=== PATIENT | male | born 1940 | race Caucasian/White ===

== ENCOUNTER 2020-08-13 10:31 | Inpatient (IN) | payer MEDICARE, SELFPAY ==
[2020-08-13] VITALS (15 sets, daily range): BP systolic 119–162; BP diastolic 61–105; PULSE 55–86; RESP 1–20; TEMP 35.9–36.4; O2SAT 92–99; BMI 27.8
--- NOTE | 2020-08-13 11:05 | XR_ITS ---
WS: [id number] Exam: XR chest 1V portable [id number] Date/Time of Exam: 08/13/2020 11:05 AM Reason For Exam: covid, CP, SOB No priors. There are groundglass infiltrates in the mid mid and lower lung zones bilaterally. Cardiomediastinal structures are unremarkable for portable technique. No pneumothorax. No pleural effusions. Regional b karime elements are intact. XR/XR chest 1V portable [id number] IMPRESSION: 1. Groundglass infiltrates in the mid and lower bilateral lung zones suggesting pneumonia.
[2020-08-13] MEDS: sodium chloride 0.9% 1,000 ML 75 ML IV (11:51)
[2020-08-13 11:52] LABS: Basophils % 0.2 %; Eosinophils # 0.4 10^3/uL (0.0-0.8); Eosinophils % 3.8 %; Hematocrit 39.1 % (42.0-52.0); Hemoglobin 12.9 g/dL (11.7-16.6); Lymphocytes % 9.8 %; Mean Corpuscular Hemoglobin 29.3 pg (28.0-34.0); Mean Corpuscular Volume 88.7 fL (80-94); Mean Platelet Volume 10.4 fL (7.4-10.4); Monocytes # 0.5 10^3/uL (0.2-0.9); Neutrophils # 7.84 10^3/uL (1.8-7.7); Neutrophils % 76.5 %; Nucleated Red Blood Cells % 0 %; Platelet Count 283 10^3/cmm (130-400); Red Blood Count 4.41 10^6/uL (4.1-5.3); White Blood Count 10.2 10^3/uL (4.0-10.0)
[2020-08-13] MEDS: dexamethasone 4 mg/mL INJ 6 MG IVP (11:53)
[2020-08-13 12:19] LABS: INR 1.09 (0.8-1.2)
[2020-08-13 12:20] LABS: Fibrinogen 286 mg/dL (174-498)
--- NOTE | 2020-08-13 12:21 | W.ED.COVID ---
HPI - COVID General: Chief Complaint: COVID symptoms Stated Complaint: SOB Time Seen by Provider: 08/13/20 10:46 Triage information: No fever, cough or shortness of breath. No known COVID + exposure last 14 days History of Present Illness: HPI Narrative: This patient is a 80-year-old male who presents with Covid. He was diagnosed on July 29 at [place] [facility]. At that time he was having fever, cough, body aches, malaise. He said that lasted for about 5 days and as that resolved he started having nausea and vomiting. That lasted for a few days. He been feeling a little bit better overall but then became short of breath several days ago. He is to the point where he can even get up and walk across his room without getting severely short of breath. He is also having some tightness in his chest which reminds him of when he had his heart troubles. He has had a few stents placed in the past. complaint: known COVID positive Prior covid testing: yes, results known Prior testing date: 07/29/20 COVID 19 common symptoms: positive fever(s), chills, cough, dyspnea, fatigue, body aches, headache(s), throat pain, nasal congestion, nausea, vomiting and diarrhea COVID 19 other sytmptoms: positive chest pressure, chest pain and respiratory distress Onset (ago): other (See HPI) Severity: severe Pertinent comorbid conditions: heart disease and recent ED visit for same complaint COVID Results: No Data to Display Review of Systems General: Reports: 10 or more systems reviewed and unremarkable except in HPI and below Const: Reports: fever(s), chills, body aches and fatigue Eyes: Denies: change in vision ENMT: Reports: throat pain and nasal congestion Card: Reports: chest pain; Denies: swelling of feet/ankles Resp: Reports: dyspnea GI: Reports: nausea, vomiting and diarrhea : Denies: flank pain Musc: Denies: neck pain or back pain Skin/Breast: Denies: rash Neuro: Reports: headache(s) Noah/Lymph: Denies: easy bruising or easy bleeding [facility] PFSH: Medical History (Updated 08/13/20 @ 14:53 by Jordon Anders MD) CAD (coronary artery disease) Hyperlipidemia Hypertension Non-insulin dependent type 2 diabetes mellitus Surgical History (Updated 08/13/20 @ 14:48 by Jordon Anders MD) History of heart artery stent Family History (Updated 08/13/20 @ 14:49 by Jordon Anders MD) Mother Old age Father CAD (coronary artery disease) Social History (Updated 08/13/20 @ 14:49 by Jordon Anders MD) Smoking and tobacco status: former smoker Alcohol intake: never Substance/Drug Use: never Physical Exam Const: COMMON NORMALS: patient oriented x3 and alert EXAM LIMITATIONS: other limitations (Very hard of hearing) GENERAL APPEARANCE: cooperative and in distress (With activity or talking) ORIENTATION/CONSCIOUSNESS: Yes awake HENMT: HEAD & SCALP: normal to inspection FACE & SINUS: normal facial exam Eye: GENERAL EYE: appearance normal, both eyes and all related structures Neck/C-Spine: COMMON NORMALS: supple, no meningeal signs and no JVD Chest: COMMONS NORMALS: normal inspection of the chest Resp: EFFORT & INSPECTION: Yes tachypneic, Yes respiratory distress and Yes uses accessory muscles AUSCULTATION: diminished lung sounds Cardio: COMMON NORMALS: no JVD, regular rate, regular rhythm and No murmurs present (Cardio) RATE: regular rate RHYTHM: regular rhythm GI: COMMON NORMALS: Normal to inspection, nondistended, normoactive bowel sounds present, Soft to palpation and non-tender INSPECTION: Yes normal to inspection AUSCULTATION: Yes normoactive bowel sounds PALPATION: Yes Soft to palpation Back/Pelvis: COMMON NORMALS: thoracic and lumbar spine normal to inspection Extremity: COMMON NORMALS: normal to inspection Neuro: COMMON NORMALS: patient oriented x3, moves all extremities, no focal motor deficits and no sensory deficits noted SENSORIUM/ORIENTATION: Yes alert MENINGEAL SIGNS: Yes no meningeal signs Psych: COMMON NORMALS: mental status grossly normal, cooperative and normal affect Skin: COMMON NORMALS: no rashes or lesions noted and turgor normal GENERAL SKIN EXAM: no rashes or lesions noted and turgor normal Course ED course: Mr. Barker presents on day 15 after a positive Covid test. He feels like he should be getting better but instead he is getting worse. His oxygen saturation on room air was in the low 80s. On 4 L I had them in the mid 90s. His x-ray shows significant Covid pneumonia infiltrates. CT of his chest shows large PEs. He is hemodynamically stable. I started him on a heparin drip. He is also had antibiotics as with the prolonged duration of his illness I am worried about a secondary bacterial pneumonia. I gave him remdesivir and Decadron. He will be admitted to the VICU. Vital Signs: Vital signs: Vital Signs Temperature 96.7 F L 08/13/20 10:56 Pulse Rate 66 08/13/20 13:16 Respiratory Rate 20 H 08/13/20 13:16 Blood Pressure 139/105 08/13/20 13:16 Pulse Oximetry 99 08/13/20 13:16 MDM - COVID Lab Data: Labs: Lab Results 08/13/20 08/13/20 08/13/20 Range/Units 11:40 11:40 11:40 WBC 10.2 H (4.0-10.0) 10^3/ uL RBC 4.41 (4.1-5.3) 10^6/u L Hgb 12.9 (11.7-16.6) g/dL Hct 39.1 L (42.0-52.0) % MCV 88.7 (80-94) fL MCH 29.3 (28.0-34.0) pg MCHC 33.0 (30.0-36.0) g/dL RDW 14.0 (12.1-15.1) % Plt Count 283 (130-400) 10^3/c mm MPV 10.4 (7.4-10.4) fL Neut % (Auto) 76.5 % Lymph % (Auto) 9.8 % Glynn % (Auto) 5.0 % Eos % (Auto) 3.8 % Baso % (Auto) 0.2 % Neut # (Auto) 7.84 H (1.8-7.7) 10^3/u L Lymph # (Auto) 1.0 (0.8-4.8) 10^3/u L Glynn # (Auto) 0.5 (0.2-0.9) 10^3/u L Eos # (Auto) 0.4 (0.0-0.8) 10^3/u L Baso # (Auto) 0.0 (0.0-0.1) 10^3/u L Nucleated RBC % (a uto) 0 % Nucleated RBCs # 0.0 /100WBC PT 14.40 (12.1-14.9) SECO NDS INR 1.09 (0.8-1.2) Fibrinogen 286 (174-498) mg/dL D-Dimer >= 20.00 H (0-0.59) ug/mIFE U Specimen Type Sample Site ABG pH (7.35-7.45) ABG pCO2 (35-45) mmHg ABG pO2 (80.0-100.0) mmH g ABG HCO3 (22-26) mmol/L ABG Base Excess (-2.0-2.0) mmol/ L Fareed Test Hematocrit (42-52) % O2 Delivery Device O2 Liters/Min % FiO2 % Food Services Coordinator ID Sodium 134 L (136-145) mmol/L Potassium 4.4 (3.5-5.1) mmol/L Chloride 99 (98-107) mmol/L Carbon Dioxide 24 (22-29) mmol/L Anion Gap 15.4 (5-19) BUN 23 (8-23) mg/dL Creatinine 0.9 (0.7-1.2) mg/dL GFR Calculation Not Reportable Glucose 226 H (65-115) mg/dL Calculated Osmolal ity 289 (285-295) mOsm/k g Lactic Acid (0.5-2.2) mmol/L Calcium 10.1 (8.5-10.5) mg/dL Ferritin 799 H (30-400) ng/mL Total Bilirubin 0.4 (0.15-1.2) mg/dL AST 30 (0-40) U/L ALT 30 (0-41) U/L Alkaline Phosphata se 53 (40-130) IU/L Lactate Dehydrogen ase 379 H (135-225) U/L Troponin T Baselin e (0-15) ng/L C-Reactive Protein 43.7 H (0.0-4.9) mg/L NT-Pro-B Natriuret Pep 779 H (0-450) pg/mL Total Protein 7.2 (6.6-8.7) g/dL Albumin 3.5 (3.5-5.2) g/dL Globulin 3.7 (1.3-4.6) g/dL Procalcitonin 0.10 (0-0.5) ng/mL Influenza Type A A g (Negative) Influenza Type B A g (Negative) 08/13/20 08/13/20 08/13/20 Range/Units 11:40 12:50 12:55 WBC (4.0-10.0) 10^3/ uL RBC (4.1-5.3) 10^6/u L Hgb (11.7-16.6) g/dL Hct (42.0-52.0) % MCV (80-94) fL MCH (28.0-34.0) pg MCHC (30.0-36.0) g/dL RDW (12.1-15.1) % Plt Count (130-400) 10^3/c mm MPV (7.4-10.4) fL Neut % (Auto) % Lymph % (Auto) % Glynn % (Auto) % Eos % (Auto) % Baso % (Auto) % Neut # (Auto) (1.8-7.7) 10^3/u L Lymph # (Auto) (0.8-4.8) 10^3/u L Glynn # (Auto) (0.2-0.9) 10^3/u L Eos # (Auto) (0.0-0.8) 10^3/u L Baso # (Auto) (0.0-0.1) 10^3/u L Nucleated RBC % (a uto) % Nucleated RBCs # /100WBC PT (12.1-14.9) SECO NDS INR (0.8-1.2) Fibrinogen (174-498) mg/dL D-Dimer (0-0.59) ug/mIFE U Specimen Type Sample Site ABG pH (7.35-7.45) ABG pCO2 (35-45) mmHg ABG pO2 (80.0-100.0) mmH g ABG HCO3 (22-26) mmol/L ABG Base Excess (-2.0-2.0) mmol/ L Fareed Test Hematocrit (42-52) % O2 Delivery Device O2 Liters/Min % FiO2 % Food Services Coordinator ID Sodium (136-145) mmol/L Potassium (3.5-5.1) mmol/L Chloride (98-107) mmol/L Carbon Dioxide (22-29) mmol/L Anion Gap (5-19) BUN (8-23) mg/dL Creatinine (0.7-1.2) mg/dL GFR Calculation Glucose (65-115) mg/dL Calculated Osmolal ity (285-295) mOsm/k g Lactic Acid 1.5 (0.5-2.2) mmol/L Calcium (8.5-10.5) mg/dL Ferritin (30-400) ng/mL Total Bilirubin (0.15-1.2) mg/dL AST (0-40) U/L ALT (0-41) U/L Alkaline Phosphata se (40-130) IU/L Lactate Dehydrogen ase (135-225) U/L Troponin T Baselin e 39 H (0-15) ng/L C-Reactive Protein (0.0-4.9) mg/L NT-Pro-B Natriuret Pep (0-450) pg/mL Total Protein (6.6-8.7) g/dL Albumin (3.5-5.2) g/dL Globulin (1.3-4.6) g/dL Procalcitonin (0-0.5) ng/mL Influenza Type A A g Negative (Negative) Influenza Type B A g Negative (Negative) 08/13/20 Range/Units 13:48 WBC (4.0-10.0) 10^3/ uL RBC (4.1-5.3) 10^6/u L Hgb (11.7-16.6) g/dL Hct (42.0-52.0) % MCV (80-94) fL MCH (28.0-34.0) pg MCHC (30.0-36.0) g/dL RDW (12.1-15.1) % Plt Count (130-400) 10^3/c mm MPV (7.4-10.4) fL Neut % (Auto) % Lymph % (Auto) % Glynn % (Auto) % Eos % (Auto) % Baso % (Auto) % Neut # (Auto) (1.8-7.7) 10^3/u L Lymph # (Auto) (0.8-4.8) 10^3/u L Glynn # (Auto) (0.2-0.9) 10^3/u L Eos # (Auto) (0.0-0.8) 10^3/u L Baso # (Auto) (0.0-0.1) 10^3/u L Nucleated RBC % (a uto) % Nucleated RBCs # /100WBC PT (12.1-14.9) SECO NDS INR (0.8-1.2) Fibrinogen (174-498) mg/dL D-Dimer (0-0.59) ug/mIFE U Specimen Type Arterial Sample Site Radial, left ABG pH 7.49 H (7.35-7.45) ABG pCO2 29.6 L (35-45) mmHg ABG pO2 72.6 L (80.0-100.0) mmH g ABG HCO3 22.5 (22-26) mmol/L ABG Base Excess -0.1 (-2.0-2.0) mmol/ L Fareed Test Pos Hematocrit 37.1 L (42-52) % O2 Delivery Device Nc O2 Liters/Min 2.0 % FiO2 28.0 % Food Services Coordinator ID Cak Sodium (136-145) mmol/L Potassium (3.5-5.1) mmol/L Chloride (98-107) mmol/L Carbon Dioxide (22-29) mmol/L Anion Gap (5-19) BUN (8-23) mg/dL Creatinine (0.7-1.2) mg/dL GFR Calculation Glucose (65-115) mg/dL Calculated Osmolal ity (285-295) mOsm/k g Lactic Acid (0.5-2.2) mmol/L Calcium (8.5-10.5) mg/dL Ferritin (30-400) ng/mL Total Bilirubin (0.15-1.2) mg/dL AST (0-40) U/L ALT (0-41) U/L Alkaline Phosphata se (40-130) IU/L Lactate Dehydrogen ase (135-225) U/L Troponin T Baselin e (0-15) ng/L C-Reactive Protein (0.0-4.9) mg/L NT-Pro-B Natriuret Pep (0-450) pg/mL Total Protein (6.6-8.7) g/dL Albumin (3.5-5.2) g/dL Globulin (1.3-4.6) g/dL Procalcitonin (0-0.5) ng/mL Influenza Type A A g (Negative) Influenza Type B A g (Negative) COVID Results: No Data to Display Discharge Plan Discharge Admit Provider: Jordon Anders Coding Level of Care Code ED Mitten Stitcher for g Fwd Exam Comprehensive
[2020-08-13 12:25] LABS: NT Pro B Type Natriuretic Pept 779 pg/mL (0-450)
[2020-08-13 12:36] LABS: D Dimer >= 20.00 ug/mIFEU (0-0.59)
[2020-08-13 12:37] LABS: Alanine Aminotransferase 30 U/L (0-41); Albumin Level 3.5 g/dL (3.5-5.2); Alkaline Phosphatase 53 IU/L (40-130); Anion Gap 15.4 (5-19); Aspartate Amino Transferase 30 U/L (0-40); Blood Urea Nitrogen 23 mg/dL (8-23); C Reactive Protein 43.7 mg/L (0.0-4.9); Calcium 10.1 mg/dL (8.5-10.5); Carbon Dioxide 24 mmol/L (22-29); Chloride 99 mmol/L (98-107); Ferritin 799 ng/mL (30-400); Globulin 3.7 g/dL (1.3-4.6); Glucose 226 mg/dL (65-115); Lactate Dehydrogenase 379 U/L (135-225); Osmolality Calculated 289 mOsm/kg (285-295); Potassium 4.4 mmol/L (3.5-5.1); Sodium 134 mmol/L (136-145); Total Bilirubin 0.4 mg/dL (0.15-1.2); Total Protein 7.2 g/dL (6.6-8.7)
--- NOTE | 2020-08-13 12:48 | ECG_ITS ---
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 Measurements Intervals [place] Rate: 65 P: 25 RI: 197 QRS: -13 QRSD: 88 T: 37 QT: 340 QTc: 355 Interpretive Statements SINUS RHYTHM LOW QRS VOLTAGE IN PRECORDIAL LEADS [QRS DEFLECTION < 1.0 mV IN CHEST LEADS] MINIMAL VOLTAGE CRITERIA FOR LVH, CONSIDER NORMAL VARIANT [MEETS CRITERIA IN ONE OF: R(aVL), S(V1), R(V5), R(V5/V6)+S(V1)] No previous ECG available for comparison Electronically Signed On 08-13-2020 20:02:06 RETAIL EXPERIENCE SPECIALIST by Brenda Patterson M.D. [id number]
--- NOTE | 2020-08-13 12:48 | CT_ITS ---
WS: [id number] CT CHEST ANGIOGRAPHY WITH REFORMATS HISTORY: CP, SOB, COVID TECHNIQUE: Contiguous axial images are obtained through the chest during arterial injection of intrav enous contrast. Images are reconstructed to evaluate the pulmonary arteries. MIP imaging also reviewe d. All CT scans at [facility] use at least one of these dose optimization techniques: aut omated exposure control; mA and/or kV adjustment per patient size (includes targeted exams where dose is matched to clinical indication); or iterative reconstruction. CONTRAST: Omnipaque 350; 95 mL IV. DLP: 577.37 mGy.cm COMPARISON: None available. Adequate opacification of the pulmonary arteries. There is significant bilateral pulmonary artery emb olic burden. Largest clot begins in the proximal RIGHT main pulmonary artery extends predominantly in to the RIGHT lower lobe pulmonary arterial system. There is branching of the thrombus into the segmen cynthia and subsegmental branches of the RIGHT lower lobe. Additional smaller emboli in the RIGHT upper a nd RIGHT middle lobes. Segmental emboli in the LEFT upper and subsegmental emboli in the LEFT lower l obes. Pulmonary artery is enlarged. Mild atherosclerosis aorta. Mild enlargement of LEFT heart chambe rs without significant RIGHT heart strain. There is extensive bilateral pulmonary opacifications. Groundglass attenuation with areas of increasi ng consolidation and opacification. Some of the opacifications are probably related to the emboli and infarcts, especially in the RIGHT lower lobe. Additional groundglass opacifications are probably rel ated to Covid 19 diagnosis. No pleural effusion. Additional rounded atelectasis in the RIGHT lower lo be. No significant adenopathy. Substernal thyroid. Calcifications in the RIGHT lobe the liver were present on the prior study from 2012. No adrenal mass identified. Disc space narrowing and osteophytes throughout the thoracic spine. No osteoblastic or osteolytic bon e disease. CT/CT angio chest PE protcl [id number] IMPRESSION: 1. Moderate bilateral pulmonary embolic burden. 2. Diffuse bilateral groundglass and patchy areas of consolidation. Probably d ue to combination of pulmonary infarct infarcts related to pulmonary embolism, atelectasis and Covid 19. 3. Moderate enlargement of the LEFT heart chambers. 4. Moderate atherosclerosis aorta. Notified Tania Fuchs MD at 08/13/2020 1:48 PM.
[2020-08-13] MEDS: iohexol 350 mg/mL 100 mL Btl IV (13:36)
[2020-08-13 13:47] LABS: Troponin(5th) Baseline 39 ng/L (0-15)
[2020-08-13 13:54] LABS: Lactic Sepsis W/Reflex 1.5 mmol/L (0.5-2.2)
[2020-08-13 13:56] LABS: Influenza A by IFA Negative (Negative); Influenza B by IFA Negative (Negative)
[2020-08-13 13:59] LABS: ABG PCO2 29.6 mmHg (35-45); ABG PH Result 7.49 (7.35-7.45); Arterial Blood Gas Hematocrit 37.1 % (42-52); Base Excess ABG -0.1 mmol/L (-2.0-2.0); Blood Gas Allen Test Pos; Blood Gas Operator Identificat CAK; Blood Gas Sample Site Radial, left; Blood Gas Sample Type Arterial; HCO3 ABG 22.5 mmol/L (22-26); Oxygen Device NC; PO2 ABG 72.6 mmHg (80.0-100.0)
[2020-08-13] MEDS: piperacillin-tazobactam 3.375 GM in sodium chloride 0.9% (plus) 50 ML IV ×2 (14:22→22:14)
[2020-08-13] MEDS: azithromycin 500 MG in sodium chloride 0.9% 250 ML 250 MG IV (14:29)
--- NOTE | 2020-08-13 14:42 | P.HP_ITS ---
Providers/Chief Complaint Admitting Physician: Jordon Anders MD Primary Care Provider: Eddie Paz Chief Complaint: SOB History of Present Illness Vinod Barker is a 80 year old male with a past medical history of CAD status post stenting x3, pkv-[id number]-xoirnyfrg type 2 diabetes mellitus, hypertension, hyperlipidemia, who presents to [facility] due to complaints of chest pain, shortness of breath, fevers, of fatigue, malaise. Patient tells me that he tested positive for Covid a few weeks ago, he has fevers, fatigue, malaise, chills. However starting a few days ago, he is developed shortness of breath, shortness of breath at rest, with chest pain, substernal, nonradiating, does have a CAD history, status post stenting x3, no history of strokes, does have type 2 diabetes, no history of COPD, did smoke for 10 years in his 20s, no falls, no injuries, no recent travel, no calf pain or calf swelling. He also reports presyncopal episodes a few days ago, especially when changing positions, lightheadedness, dizziness, denies ever passing out. Review of Systems Const: Reports: fever(s), body aches, fatigue and malaise; Denies: chills Eyes: Denies: change in vision or blurry vision ENMT: Denies: nasal congestion Card: Reports: chest pain and pre-syncope; Denies: palpitations or irregular heart rhythm Resp: Reports: dyspnea and non-productive cough; Denies: productive cough or wheezing GI: Denies: abdominal pain, nausea, vomiting, hematemesis, diarrhea, constipation, hematochezia or melena : Denies: flank pain, difficulty urinating, dysuria or urinary frequency Musc: Denies: neck pain or back pain Skin/Breast: Denies: rash Neuro: Denies: headache(s), dizziness or vertigo Psych: Denies: anxiety or depression Endo: Denies: polyuria or polydipsia Medications/Allergies Home Medications Medication Instructions Recorded Confirmed Last Taken Type benzonatate 200 mg PO TID PRN 08/13/20 08/13/20 Unknown History lisinopril 2.5 mg PO DAILY 08/13/20 08/13/20 Unknown History metformin 500 mg PO BID 08/13/20 08/13/20 Unknown History simvastatin 20 mg PO DAILY 08/13/20 08/13/20 Unknown History Allergies Allergy/AdvReac Type Severity Reaction Status Date / Time No Known Allergies Allergy Verified 08/13/20 10:59 PFSH Acute PFSH: Medical History (Updated 08/13/20 @ 14:53 by Jordon Anders MD) CAD (coronary artery disease) Hyperlipidemia Hypertension Non-insulin dependent type 2 diabetes mellitus Surgical History (Updated 08/13/20 @ 14:48 by Jordon Anders MD) History of heart artery stent Family History (Updated 08/13/20 @ 14:49 by Jordon Anders MD) Mother Old age Father CAD (coronary artery disease) Social History (Updated 08/13/20 @ 14:49 by Jordon Anders MD) Smoking and tobacco status: former smoker Alcohol intake: never Substance/Drug Use: never Vitals/I&O/Wt Last Vital Signs Temp 96.7 F L 08/13/20 10:56 Pulse 66 08/13/20 13:16 Resp 20 H 08/13/20 13:16 BP 139/105 08/13/20 13:16 Pulse Ox 99 08/13/20 13:16 Weight last 48 hrs Weight 90.718 kg Physical Exam Const: COMMON NORMALS: no acute distress and patient oriented x3 GENERAL APPEARANCE: cooperative and comfortable HENMT: COMMON NORMALS: normocephalic HEAD & SCALP: normocephalic Eye: COMMON NORMALS: Equal, round and reactive pupils present and EOMs intact bilaterally GENERAL EYE: appearance normal, both eyes and all related structures PUPIL: Yes Equal, round and reactive pupils present Neck/C-Spine: COMMON NORMALS: full ROM, no lymphadenopathy, no JVD and Thyroid normal THYROID: Thyroid normal Lymph: LYMPHATIC: no lymphadenopathy noted Resp: COMMON NORMALS: normal respiratory effort, No retractions, No use of accessory muscles and clear to auscultation bilaterally AUSCULTATION: diminished lung sounds Cardio: COMMON NORMALS: no JVD, regular rate, regular rhythm, S1 normal heart sound present, S2 normal heart sound present, No gallops present (Cardio), No clicks present (Cardio) and No murmurs present (Cardio) RATE: regular rate RHYTHM: regular rhythm HEART SOUNDS: S1 normal heart sound present and S2 normal heart sound present GI: COMMON NORMALS: Normal to inspection, nondistended, normoactive bowel sounds present, Soft to palpation, non-tender and No hepatosplenomegaly present PALPATION: Yes Soft to palpation and Yes No hepatosplenomegaly present Extremity: COMMON NORMALS: normal to inspection, full ROM and no pedal edema Neuro: COMMON NORMALS: patient oriented x3, CN's II-XII intact bilaterally, moves all extremities and no focal motor deficits Psych: COMMON NORMALS: mental status grossly normal, Normal thought process p resent and cooperative THOUGHT PROCESS: Normal thought process present Data : 08/13/20 11:40 08/13/20 11:40 A&P Assessment and plan (1) Acute and chronic respiratory failure with hypoxia: Secondary to COVID-19 pneumonia, viral pneumonitis, secondary bacterial infection, bilateral PEs, pulmonary infarct, and early component of acute respiratory distress syndrome -ct angio:significant bilateral pulmonary artery embolic burden. Largest clot begins in the proximal RIGHT main pulmonary artery extends predominantly into the RIGHT lower lobe pulmonary arterial system. There is branching of the thrombus into the segmental and subsegmental branches of the RIGHT lower lobe. Additional smaller emboli in the RIGHT upper and RIGHT middle lobes. Segmental emboli in the LEFT upper and subsegmental emboli in the LEFT lower lobes. Pulmonary artery is enlarged. Mild atherosclerosis aorta. Mild enlargement of LEFT heart chambers without significant RIGHT heart strain. There is extensive bilateral pulmonary opacifications. Groundglass attenuation with areas of increasing consolidation and opacification. Some of the opacifications are probably related to the emboli and infarcts, especially in the RIGHT lower lobe. Additional groundglass opacifications are probably related to Covid 19 diagnosis -on 2L, no respiratory distress, no hemodynamic compromise, normal sinus rhythm Plan: -Admit to viral ICU -Full code -Heparin drip -Decadron -Remdesivir -Broad-spectrum antibiotics vancomycin, Zosyn, azithromycin -Blood cultures, urine cultures, sputum cultures, urine bacterial antigens -Cardiac echocardiogram -serial troponins, serial EKGs, telemetry monitoring -Vitamin C zinc -Advair, albuterol -Oxygen therapy -Patient is high risk for intubation Status: Acute (2) CAD (coronary artery disease): Status post stenting x3 Status: Acute (3) Hyperlipidemia: Continue statin Status: Acute (4) Hypertension: Status: Acute (5) Non-insulin dependent type 2 diabetes mellitus: Low-dose sliding scale, A1c Status: Acute (6) Pneumonia due to COVID-19 virus: Status: Acute (7) Secondary bacterial pneumonia: Status: Acute (8) Bilateral pulmonary embolism: Status: Acute (9) Pulmonary infarct: Status: Acute (10) Acute respiratory distress syndrome: Status: Acute (11) NSTEMI (non-ST elevated myocardial infarction): Likely supply demand ischemia from bilateral PEs, COVID-19, pneumonia, acute respiratory failure -Aspirin, statin, monitor blood pressures, monitor troponins, monitor EKGs Status: Acute Attestations Medical Necessity Statement*: Patient requires hospitalization, inpatient, greater than 2 midnights, for acute respiratory failure secondary to PEs, COVID- 19, secondary bacterial pneumonia, pulmonary infarct Coding Level of Care Code Acute Bilingual Sales Representative for [facility] Fwd Diagnoses Acute and chronic respiratory failure with hypoxia J96.21 CAD (coronary artery disease) I25.10 Hyperlipidemia E78.5 Hypertension I10 Non-insulin dependent type 2 diabetes mellitus E11.9 Pneumonia due to COVID-19 virus U07.1; J12.89 Secondary bacterial pneumonia J15.9 Bilateral pulmonary embolism I26.99 Pulmonary infarct I26.99 Acute respiratory distress syndrome J80 NSTEMI (non-ST elevated myocardial infarction) I21.4
--- NOTE | 2020-08-13 14:48 | ECG_ITS ---
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 Measurements Intervals [place] Rate: 71 P: 19 GA: 185 QRS: -12 QRSD: 94 T: 35 QT: 352 QTc: 382 Interpretive Statements SINUS RHYTHM LOW QRS VOLTAGE IN PRECORDIAL LEADS [QRS DEFLECTION < 1.0 mV IN CHEST LEADS] POSSIBLE OLD INFERIOR RI Compared to ECG 08/13/2020 13:25:21 No significant changes Electronically Signed On 08-13-2020 20:13:45 SAMPLE EXAMINER by Brenda Patterson M.D. [id number]
[2020-08-13 15:15] LABS: Troponin 5 2HR 36.23 ng/L (0-15); Troponin 5 2HR Delta -2.77 ABS# (0-10)
[2020-08-13] MEDS: heparin 5,000 unit/mL INJ 1 mL IV (15:55)
[2020-08-13] MEDS: heparin drip 25,000 UNIT/500 ML PREMIX 25.4 UNIT IV (15:55)
[2020-08-13] MEDS: vancomycin 1,250 MG/250 ML PIGGYBACK 200 MG IV (15:59)
[2020-08-13] MEDS: ascorbic acid 500 mg Tablet 1000 MG PO (18:18)
[2020-08-13] MEDS: aspirin 81 mg EC Tablet PO (18:18)
[2020-08-13 18:30] LABS: Glucose Point of Care 387 mg/dL (70-110)
--- NOTE | 2020-08-13 20:23 | PC.NURSE ---
blood drawn and sent for Lactic Acid/Trop/COVID and UA collected and sent. Family called and verified with pt okay to talk with family.
[2020-08-13 20:57] LABS: Lactate (Lactic Acid level) 2.6 mmol/L (0.5-2.2)
[2020-08-13 20:58] LABS: Troponin 5 6HR 35.68 ng/L (0-15)
--- NOTE | 2020-08-13 21:59 | PC.NURSE ---
no wounds noted
[2020-08-13 22:08] LABS: Glucose Point of Care 238 mg/dL (70-110)
[2020-08-13 23:20] LABS: Partial Thromboplastin Time 125.6 SECONDS (23.9-36.7)
[2020-08-14] VITALS (29 sets, daily range): BP systolic 103–175; BP diastolic 55–85; PULSE 51–78; RESP 6–28; TEMP 36.2–37.1; O2SAT 88–100
--- NOTE | 2020-08-14 00:15 | PC.NURSE ---
RR not 4 and zero 14-18 BPM
[2020-08-14] MEDS: acetaminophen 325 mg Tablet 650 MG PO (01:17)
--- NOTE | 2020-08-14 01:18 | PC.NURSE ---
call to physician, NS order d/c pt has heparin infusing check on the NS at 30cc/hr TKO. Pt requested sleep medication. Notified provider of pt's request, gave Tylenol PO now
[2020-08-14] MEDS: sodium chloride 0.9% 1,000 ML 10 ML IV (01:41)
[2020-08-14] MEDS: zolpidem 5 mg Tablet PO (03:03)
[2020-08-14] MEDS: vancomycin 1,250 MG/250 ML PIGGYBACK 200 MG IV (03:21)
[2020-08-14 04:06] LABS: ABG PCO2 33.6 mmHg (35-45); ABG PH Result 7.44 (7.35-7.45); Arterial Blood Gas Hematocrit 34.8 % (42-52); Blood Gas Allen Test Pos; Blood Gas Operator Identificat HARKR; Blood Gas Sample Site Radial, right; Blood Gas Sample Type Arterial; HCO3 ABG 22.7 mmol/L (22-26); Oxygen Device NC; PO2 ABG 88.1 mmHg (80.0-100.0)
[2020-08-14 04:38] LABS: Basophils % 0.1 %; Eosinophils # 0.2 10^3/uL (0.0-0.8); Eosinophils % 2.2 %; Hematocrit 31.9 % (42.0-52.0); Hemoglobin 10.6 g/dL (11.7-16.6); Lymphocytes # 0.7 10^3/uL (0.8-4.8); Lymphocytes % 9.8 %; Mean Corpuscular HGB Conc 33.2 g/dL (30.0-36.0); Mean Corpuscular Hemoglobin 29.5 pg (28.0-34.0); Mean Corpuscular Volume 88.9 fL (80-94); Mean Platelet Volume 11.2 fL (7.4-10.4); Monocytes # 0.5 10^3/uL (0.2-0.9); Monocytes % 7.2 %; Neutrophils # 5.47 10^3/uL (1.8-7.7); Neutrophils % 76.9 %; Nucleated Red Blood Cells % 0 %; Platelet Count 216 10^3/cmm (130-400); Red Blood Count 3.59 10^6/uL (4.1-5.3); Red Cell Distribution Width 13.9 % (12.1-15.1); White Blood Count 7.1 10^3/uL (4.0-10.0)
[2020-08-14] MEDS: piperacillin-tazobactam 3.375 GM in sodium chloride 0.9% (plus) 50 ML IV ×3 (04:53→19:57)
[2020-08-14 05:12] LABS: Glucose Point of Care 194 mg/dL (70-110)
--- NOTE | 2020-08-14 05:57 | PC.NURSE ---
Pt stood to void. SP02 dropped 83% with positive waveform and RR 34 with working to breath for 2 minutes after returning to supine position. Sp02 94% with 3L NC. RR 24
[2020-08-14 06:05] LABS: INR 1.19 (0.8-1.2)
[2020-08-14 06:27] LABS: D Dimer >= 20.00 ug/mIFEU (0-0.59)
[2020-08-14 06:33] LABS: Partial Thromboplastin Time 98.4 SECONDS (23.9-36.7)
--- NOTE | 2020-08-14 07:00 | XRR_ITS ---
PROCEDURE INFORMATION: Exam: XR Chest, 1 View Exam date and time: 08/14/2020 4:23 AM Age: 80 years old Clinical indication: Condition or disease; Lung condition and disease; Other: Covid; Additional info: SOB TECHNIQUE: Imaging protocol: XR of the chest Views: 1 view. COMPARISON: CR XR chest 1V portable [id number] 08/13/2020 11:10 AM FINDINGS: The heart size is normal. The lungs show bilateral heterogenous infiltrates. A tiny right pleural effusion is present. No significant change is seen. XR/XR chest 1V portable [id number] IMPRESSION: No significant change is seen.
--- NOTE | 2020-08-14 07:17 | PC.NURSE ---
Report to BRIAN Hadley.
[2020-08-14 07:52] LABS: Estmated Average Glucose 189; Hemoglobin A1C 8.2 % (4.0-6.0)
--- NOTE | 2020-08-14 08:14 | PC.NURSE ---
Called pt daughter to request cell phone at pt request.
[2020-08-14] MEDS: pantoprazole DR 40 mg Tablet PO (09:17)
[2020-08-14] MEDS: ascorbic acid 500 mg Tablet 1000 MG PO ×2 (09:17→18:17)
[2020-08-14] MEDS: aspirin 81 mg EC Tablet PO (09:17)
[2020-08-14] MEDS: atorvastatin 40 mg Tablet 20 MG PO (09:17)
[2020-08-14] MEDS: zinc gluconate 50 mg Tablet PO (09:18)
[2020-08-14 10:27] LABS: NT Pro B Type Natriuretic Pept 948 pg/mL (0-450); Procalcitonin 0.09 ng/mL (0-0.5)
[2020-08-14 10:29] LABS: Alanine Aminotransferase 24 U/L (0-41); Alkaline Phosphatase 44 IU/L (40-130); Anion Gap 17.8 (5-19); Aspartate Amino Transferase 23 U/L (0-40); Blood Urea Nitrogen 21 mg/dL (8-23); C Reactive Protein 39.7 mg/L (0.0-4.9); Calcium 9.1 mg/dL (8.5-10.5); Carbon Dioxide 20 mmol/L (22-29); Chloride 103 mmol/L (98-107); Glucose 148 mg/dL (65-115); Magnesium 1.8 mg/dL (1.7-2.3); Osmolality Calculated 288 mOsm/kg (285-295); Phosphorus 5.1 mg/dL (2.5-4.5); Potassium 4.8 mmol/L (3.5-5.1); Sodium 136 mmol/L (136-145); Thyroid Stimulating Hormone 0.86 uIU/mL (0.27-4.20); Total Bilirubin 0.2 mg/dL (0.15-1.2)
[2020-08-14 10:39] LABS: Chol HDL Ratio 3.33 mg/dL (1.0-5.00); Cholesterol 120 mg/dL (0-200); Creatine Phosphokinase 54 U/L (39-308); HDL Cholesterol 36 mg/dL (60-100); LDL Cholesterol Calculated 61 mg/dL (50-129); LDL HDL Ratio 1.69 RATIO (0.00-3.22); Triglycerides 116 mg/dL (0-150)
--- NOTE | 2020-08-14 13:19 | P.PN_ITS ---
Subjective Subjective: Interval history: This morning patient was examined, he is sitting up to chair, on 1 to 2 L nasal cannula, he tells me that he does feel short of breath with exertion, no chest pain, no fevers, no chills, no nausea, no vomiting, he is worried about his heart Vitals/I&O/Wt Last Vital Signs Temp 97.2 F L 08/14/20 12:00 Pulse 69 08/14/20 12:00 Resp 26 H 08/14/20 12:00 BP 151/66 08/14/20 12:00 Pulse Ox 92 08/14/20 12:00 08/13/20 08/14/20 08/14/20 22:59 06:59 14:59 Intake Total 650 / 650 1621.0 / 2271.0 220 / 220 Output Total 300 / 300 600 / 900 500 / 500 Balance 350 / 350 1021.0 / 1371.0 -280 / -280 Weight last 48 hrs Weight 90.718 kg Physical Exam Const: COMMON NORMALS: no acute distress and patient oriented x3 HENMT: COMMON NORMALS: normocephalic HEAD & SCALP: normocephalic Neck/C-Spine: COMMON NORMALS: no JVD Resp: COMMON NORMALS: normal respiratory effort, No retractions, No use of accessory muscles and clear to auscultation bilaterally AUSCULTATION: clear to auscultation bilaterally Cardio: COMMON NORMALS: no JVD, regular rate, regular rhythm, S1 normal heart sound present and S2 normal heart sound present RATE: regular rate RHYTHM: regular rhythm HEART SOUNDS: S1 normal heart sound present and S2 normal heart sound present GI: COMMON NORMALS: Normal to inspection, nondistended, normoactive bowel sounds present, Soft to palpation, non-tender, No hepatosplenomegaly present, no masses and no bruits PALPATION: Yes Soft to palpation and Yes No hepatosplenomegaly present Extremity: COMMON NORMALS: capillary refill normal, no clubbing, cyanosis or edema, no calf tenderness and no pedal edema Neuro: COMMON NORMALS: patient oriented x3 Psych: COMMON NORMALS: mental status grossly normal Data : 08/14/20 04:25 08/14/20 04:25 Micro: Microbiology 08/13/20 19:57 Bacterial Antigens - Final Urine,Voided 08/13/20 14:30 Blood Culture - Preliminary Blood SPECIMEN COLLECTED 08/13/20 14:25 Blood Culture - Preliminary Blood SPECIMEN COLLECTED A&P Assessment and plan (1) Acute and chronic respiratory failure with hypoxia: Secondary to COVID-19 pneumonia, viral pneumonitis, secondary bacterial infection, bilateral PEs, pulmonary infarct, and early component of acute respiratory distress syndrome -ct angio:significant bilateral pulmonary artery embolic burden. Largest clot begins in the proximal RIGHT main pulmonary artery extends predominantly into the RIGHT lower lobe pulmonary arterial system. There is branching of the thrombus into the segmental and subsegmental branches of the RIGHT lower lobe. Additional smaller emboli in the RIGHT upper and RIGHT middle lobes. Segmental emboli in the LEFT upper and subsegmental emboli in the LEFT lower lobes. Pulmonary artery is enlarged. Mild atherosclerosis aorta. Mild enlargement of LEFT heart chambers without significant RIGHT heart strain. There is extensive bilateral pulmonary opacifications. Groundglass attenuation with areas of increasing consolidation and opacification. Some of the opacifications are probably related to the emboli and infarcts, especially in the RIGHT lower lobe. Additional groundglass opacifications are probably related to Covid 19 diagnosis -on 2-3L, no respiratory distress, no hemodynamic compromise, normal sinus rhythm Plan: -Admit to viral ICU -Full code -Heparin drip -Decadron -Remdesivir -Broad-spectrum antibiotics vancomycin, Zosyn, azithromycin -Blood cultures, urine cultures, sputum cultures, urine bacterial antigens -Cardiac echocardiogram pending -Continue telemetry monitoring -Vitamin C zinc -Advair, albuterol -Oxygen therapy Plan for today continue aggressive pulmonary toilet, oxygen therapy, physical therapy Status: Acute (2) CAD (coronary artery disease): Status post stenting x3 Status: Acute (3) Hyperlipidemia: Continue statin Status: Acute (4) Hypertension: Status: Acute (5) Non-insulin dependent type 2 diabetes mellitus: Low-dose sliding scale, 8.2 Status: Acute (6) Pneumonia due to COVID-19 virus: Status: Acute (7) Secondary bacterial pneumonia: Status: Acute (8) Bilateral pulmonary embolism: Status: Acute (9) Pulmonary infarct: Status: Acute (10) Acute respiratory distress syndrome: Status: Acute (11) NSTEMI (non-ST elevated myocardial infarction): Likely supply demand ischemia from bilateral PEs, COVID-19, pneumonia, acute respiratory failure -Aspirin, statin, monitor blood pressures, monitor troponins, monitor EKGs Status: Acute Attestations Medical Necessity Statement*: Patient requires hospitalization for acute respiratory failure secondary to COVID-19 pneumonia, pulmonary emboli, secondary bacterial pneumonia Coding Level of Care Code Acute 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
[2020-08-14] MEDS: dexamethasone 4 mg/mL INJ 6 MG IVP (13:34)
[2020-08-14 15:14] LABS: Partial Thromboplastin Time 38.7 SECONDS (23.9-36.7)
[2020-08-14] MEDS: azithromycin 500 MG in sodium chloride 0.9% 250 ML 250 MG IV (15:21)
[2020-08-14 16:28] LABS: Glucose Point of Care 185 mg/dL (70-110)
[2020-08-14 17:01] LABS: Glucose Point of Care 280 mg/dL (70-110)
[2020-08-14 17:07] LABS: Vancomycin Trough 8.3 ug/mL (10-15)
--- NOTE | 2020-08-14 17:17 | USCV_ITS ---
Vinod Barker Age: 80 Gender: M : 1940 Exam Date: 08/14/2020 10:31 Ordering Phys: Jordon Anders MD Technologist: Cristiane Davison Exam Location: [facility] [place] Indication: Bilateral PE BP: 140 / 75 HR: 73 Rhythm: Sinus Technical Quality: Suboptimal MEASUREMENTS (Male / Female) Normal Values 2D ECHO LV Diastolic Diameter PLAX 4.1 cm 4.2 - 5.9 / 3.9 - 5.3 cm LV Systolic Diameter PLAX 3.3 cm LV Chamber Size 4.0 cm IVS Diastolic Thickness 1.1 cm 0.6 - 1.0 / 0.6 - 0.9 cm IVS Systolic Thickness 1.6 cm LVPW Diastolic Thickness 1.0 cm 0.6 - 1.0 / 0.6 - 0.9 cm LVPW Systolic Thickness 1.6 cm RV Chamber Size 3.0 cm LVOT Diameter 2.0 cm LV Ejection Fraction 2D Teich 41.4 % LA Diameter 3.0 cm LA Width 3.5 cm LA Height 5.1 cm Aorta at Sinotubular Diameter 1.9 cm M-MODE LV Diastolic Diameter MM 4.4 cm 4.2 - 5.9 / 3.9 - 5.3 cm LV Systolic Diameter MM 2.8 cm LV Ejection Fraction MM Teich 66.8 % IVS Diastolic Thickness MM 1.2 cm 0.6 - 1.0 / 0.6 - 0.9 cm IVS Systolic Thickness MM 1.5 cm LVPW Diastolic Thickness MM 1.7 cm 0.6 - 1.0 / 0.6 - 0.9 cm LVPW Systolic Thickness MM 2.1 cm MV E Point Septal Separation 0.5 cm DOPPLER AV Peak Velocity 172.0 cm/s LVOT Peak Velocity 99.0 cm/s AV Area Cont Eq vti 2.0 cm squared AV Area Cont Eq pk 1.9 cm squared MV Area PHT 3.1 cm squared Mitral E to A Ratio 0.7 MV E' Velocity 36.5 cm/s Mitral E to MV E' Ratio 5.7 Mitral E to LV E' Lateral Ratio 5.6 Mitral E to LV E' Septal Ratio 5.9 TR Peak Velocity 254.0 cm/s TR Peak Gradient 25.8 mmHg TV Peak E Velocity 56.0 cm/s Right Atrial Pressure 3.0 mmHg Pulmonary Artery Systolic Pressu 28.8 mmHg FINDINGS Left Ventricle Normal left ventricular size. LV systolic function is mildly reduced with EF of 40 to 45%. Mild global hypokinesis with moderate hypokinesis of anteroseptal and inferoseptal terry. Normal left ventricular wall thickness. Grade 1 diastolic dysfunction is present. Right Ventricle The right ventricle is normal in size and function. Right Atrium The right atrium is normal in size. Left Atrium The left atrium is normal in size. Mitral Valve Structurally normal mitral valve without significant stenosis or prolapse. There is mild mitral regurgitation. Aortic Valve Structurally normal aortic valve without significant sclerosis or stenosis. There is no aortic regurgitation. Tricuspid Valve Structurally normal tricuspid valve without significant stenosis. Mild tricuspid regurgitation is noted. RVSP is 25 to 30 mmHg. Pulmonic Valve Not well-visualized Pericardium Normal pericardium without effusion. Aorta Normal ascending aorta dimension. CONCLUSIONS This is technically fecal study with limited visualization. LV systolic function is mildly reduced with EF of 40 to 45%. Wall motion abnormalities as mentioned above. Grade 1 diastolic dysfunction is noted. Mild mitral regurgitation and mild tricuspid regurgitation is present. RVSP is 25 to 30 mmHg and is normal. No comparison studies are available. Baljinder Pfeiffer MD (Electronically Signed) Final Date: 15 August 2020 12:03 S
--- NOTE | 2020-08-14 17:17 | USR_ITS ---
PROCEDURE INFORMATION: Exam: US Duplex Lower Extremity Veins, Bilateral Exam date and time: 08/14/2020 12:43 PM Age: 80 years old Clinical indication: Other: Bilateral pulmonary embolism; Additional info: Dvt? TECHNIQUE: Imaging protocol: Real-time duplex ultrasound of the extremities with 2-D weber scale, color Doppler flow and spectral waveform analysis with image documentation. Complete exam focused on the bilateral lower extremity veins. COMPARISON: No relevant prior studies available. FINDINGS: Right deep veins: No deep venous thrombosis in the visualized right common femoral, profunda femoris, superficial femoral, popliteal, or posterior tibial veins. Right superficial veins: Saphenofemoral junction is patent without thrombus. Left deep veins: No deep venous thrombosis in the visualized left common femoral, profunda femoris, superficial femoral, or popliteal veins. Localized deep venous thrombosis in the left posterior tibial vein. Left superficial veins: Saphenofemoral junction is patent without thrombus. Soft tissues: Unremarkable. US/[place] [id number] IMPRESSION: 1. No deep venous thrombosis in the visualized right lower extremity. 2. Localized deep venous thrombosis in the left posterior tibial vein. The aforementioned findings initiated a critical results communication pathway. An addendum will be issued at the time of clincian notification.
--- NOTE | 2020-08-14 17:48 | PC.NURSE ---
Pt up and walking for 3rd time today with 02 on. Pt o2 drops to86 with activity. Tolerates walking well.
--- NOTE | 2020-08-14 17:59 | PC.NURSE ---
US results read to Dr. Anders.
[2020-08-14] MEDS: vancomycin 1,500 MG/300 ML PIGGYBACK 200 MG IV (19:50)
[2020-08-14] MEDS: heparin drip 25,000 UNIT/500 ML PREMIX 15 UNIT IV (19:51)
[2020-08-14 20:36] LABS: Partial Thromboplastin Time 37.8 SECONDS (23.9-36.7)
--- NOTE | 2020-08-14 21:00 | PC.NURSE ---
Patient resting in bed with eyes closed at this time. Patient is able to voice concerns and make needs known. Bilateral crackles noted to lung bases. No complaints of pain. Patient is stand by assist. Alert and orientated. Call light within reach. Continue care.
[2020-08-14] MEDS: heparin 5,000 unit/mL INJ 1 mL IV (21:05)
[2020-08-15] VITALS (28 sets, daily range): BP systolic 117–177; BP diastolic 59–86; PULSE 51–100; RESP 0–35; TEMP 36.5–36.6; O2SAT 88–100
--- NOTE | 2020-08-15 00:05 | PC.NURSE ---
Patient resting in room with eyes closed at this time. Patient did get up and transfer to recliner beside bed and sat for approximately 1 hour. Patient continues to be on 1 L NC to maintain O2 sats. No complaints of pain, continue care.
[2020-08-15 02:56] LABS: Basophils % 0.1 %; Eosinophils # 0.1 10^3/uL (0.0-0.8); Eosinophils % 1.1 %; Hematocrit 35.5 % (42.0-52.0); Hemoglobin 11.1 g/dL (11.7-16.6); Lymphocytes # 0.7 10^3/uL (0.8-4.8); Lymphocytes % 9.1 %; Mean Corpuscular HGB Conc 31.3 g/dL (30.0-36.0); Mean Corpuscular Hemoglobin 29.3 pg (28.0-34.0); Mean Corpuscular Volume 93.7 fL (80-94); Mean Platelet Volume 10.9 fL (7.4-10.4); Monocytes # 0.4 10^3/uL (0.2-0.9); Neutrophils # 5.92 10^3/uL (1.8-7.7); Neutrophils % 80.4 %; Nucleated Red Blood Cells % 0 %; Platelet Count 231 10^3/cmm (130-400); Red Blood Count 3.79 10^6/uL (4.1-5.3); White Blood Count 7.4 10^3/uL (4.0-10.0)
[2020-08-15 02:59] LABS: INR 1.15 (0.8-1.2)
[2020-08-15 03:05] LABS: Alanine Aminotransferase 25 U/L (0-41); Albumin Level 3.4 g/dL (3.5-5.2); Alkaline Phosphatase 49 IU/L (40-130); Blood Urea Nitrogen 16 mg/dL (8-23); Calcium 8.8 mg/dL (8.5-10.5); Carbon Dioxide 24 mmol/L (22-29); Chloride 101 mmol/L (98-107); Globulin 3.2 g/dL (1.3-4.6); Glucose 201 mg/dL (65-115); Magnesium 2.5 mg/dL (1.7-2.3); Osmolality Calculated 287 mOsm/kg (285-295); Phosphorus 4.7 mg/dL (2.5-4.5); Sodium 135 mmol/L (136-145); Total Bilirubin 0.3 mg/dL (0.15-1.2); Total Protein 6.6 g/dL (6.6-8.7)
[2020-08-15 03:07] LABS: Partial Thromboplastin Time 90.4 SECONDS (23.9-36.7)
[2020-08-15 03:09] LABS: Anion Gap 13.9 (5-19); Aspartate Amino Transferase 27 U/L (0-40); Potassium 3.9 mmol/L (3.5-5.1)
[2020-08-15 03:15] LABS: NT Pro B Type Natriuretic Pept 664 pg/mL (0-450); Procalcitonin 0.12 ng/mL (0-0.5)
[2020-08-15 03:16] LABS: D Dimer 19.82 ug/mIFEU (0-0.59)
[2020-08-15 03:25] LABS: Creatine Phosphokinase 83 U/L (39-308)
[2020-08-15] MEDS: piperacillin-tazobactam 3.375 GM in sodium chloride 0.9% (plus) 50 ML IV ×3 (03:55→19:50)
[2020-08-15 04:03] LABS: ABG PCO2 31.2 mmHg (35-45); ABG PH Result 7.43 (7.35-7.45); Arterial Blood Gas Hematocrit 34.4 % (42-52); Base Excess ABG -3.1 mmol/L (-2.0-2.0); Blood Gas Allen Test Pos; Blood Gas Sample Site Radial, right; Blood Gas Sample Type Arterial; HCO3 ABG 20.5 mmol/L (22-26); Oxygen Device NC; PO2 ABG 79.6 mmHg (80.0-100.0)
[2020-08-15] MEDS: vancomycin 1,500 MG/300 ML PIGGYBACK 200 MG IV ×2 (05:08→17:53)
--- NOTE | 2020-08-15 05:29 | PC.NURSE ---
Patient resting in bed. No complaints of pain. No concerns voiced. Patient would like to be discharged home when able to safely. Call light within reach. Continue care.
[2020-08-15 05:55] LABS: Glucose Point of Care 177 mg/dL (70-110)
--- NOTE | 2020-08-15 06:00 | ECG_ITS ---
[facility] ED Test Date: 2020-08-15 Pat Name: Vinod Barker Department: Room: ICU19 Gender: Male Can Stacker: TARIK WILLIAMSON: 1940 Requested By: Jordon Anders Order Number: [id number] Mickey MD: Brenda Patterson M.D. Measurements Intervals [place] Rate: 50 P: 32 DE: 212 QRS: 3 QRSD: 106 T: 79 QT: 423 QTc: 388 Interpretive Statements SINUS BRADYCARDIA WITH FIRST DEGREE AV BLOCK INFERIOR MYOCARDIAL INFARCTION [40+ ms Q WAVE AND/OR ST/T ABNORMALITY IN II/aVF], PROBABLY OLD ANTEROLATERAL MYOCARDIAL INFARCTION [40+ ms Q WAVE IN I/aVL/V3-V6], PROBABLY OLD Compared to ECG 08/13/2020 15:01:48 First degree AV block now present Sinus rhythm no longer present Myocardial infarct finding still present Electronically Signed On 08-25-2020 20:39:06 GAS APPLIANCE SERVICER by Brenda Patterson M.D. [id number]
--- NOTE | 2020-08-15 06:36 | PC.NURSE ---
Patient had a small approximately 8 second run of v tach at 0450 this am. Patient denied any chest pain. transmitter engineer in charge aware, will pass on in report and printed strip. Continue care.
--- NOTE | 2020-08-15 07:00 | XRR_ITS ---
PROCEDURE INFORMATION: Exam: XR Chest, 1 View Exam date and time: 08/15/2020 7:01 AM Age: 80 years old Clinical indication: Shortness of breath; COVID-19 TECHNIQUE: Imaging protocol: XR of the chest Views: 1 view. COMPARISON: XR CHEST 08/14/2020 4:57 AM FINDINGS: Lungs: Bilateral, asymmetric, somewhat peripheral airspace disease is present consistent with COVID-19 pneumonia. This is unchanged. Pleural space: Stable tiny right pleural effusion versus pleural thickening. Heart/Mediastinum: The cardiac silhouette is not enlarged. Mediastinum is somewhat widened which may be due to mediastinal lipomatosis given the patient's body habitus. Bones/joints: There are multilevel bridging osteophytes in the spine. XR/XR chest 1V portable [id number] IMPRESSION: No significant change when compared to XR CHEST 08/14/2020 4:57 AM.
[2020-08-15] MEDS: apixaban 5 mg Tablet 10 MG PO ×2 (08:27→17:53)
[2020-08-15] MEDS: ascorbic acid 500 mg Tablet 1000 MG PO ×2 (08:27→17:53)
[2020-08-15] MEDS: benzonatate 100 mg Capsule PO (08:27)
[2020-08-15] MEDS: FUROsemide 10 mg/mL SDV 2mL 20 MG IVP (08:27)
[2020-08-15] MEDS: pantoprazole DR 40 mg Tablet PO (08:27)
[2020-08-15] MEDS: atorvastatin 40 mg Tablet 20 MG PO (08:27)
[2020-08-15] MEDS: aspirin 81 mg EC Tablet PO (08:27)
[2020-08-15] MEDS: zinc gluconate 50 mg Tablet PO (08:29)
[2020-08-15 11:21] LABS: Glucose Point of Care 128 mg/dL (70-110)
--- NOTE | 2020-08-15 11:33 | P.PN_ITS ---
Subjective Subjective: Interval history: This morning patient was examined, he is on and off 1 to 2 L nasal cannula, currently on room air, sitting up into a chair, no fevers, no chills, no nausea, no vomiting, still having some pleuritic-like pain, no nausea, vomiting, no shortness of breath, some shortness of breath with exertion Vitals/I&O/Wt Last Vital Signs Temp 97.7 F 08/15/20 08:00 Pulse 68 08/15/20 11:18 Resp 17 08/15/20 11:18 BP 127/69 08/15/20 10:00 Pulse Ox 93 08/15/20 11:18 08/14/20 08/15/20 08/15/20 22:59 06:59 14:59 Intake Total 554.483 / 824.483 554.9 / 6357.294 7723.867 / 1414.867 Output Total 1550 / 2050 200 / 2250 1225 / 1225 Balance -995.517 / -1225.517 354.9 / -870.617 189.867 / 189.867 Physical Exam Const: COMMON NORMALS: no acute distress and patient oriented x3 HENMT: COMMON NORMALS: normocephalic HEAD & SCALP: normocephalic Neck/C-Spine: COMMON NORMALS: no JVD Resp: COMMON NORMALS: normal respiratory effort, No retractions and No use of accessory muscles AUSCULTATION: diminished lung sounds Cardio: COMMON NORMALS: no JVD, regular rate, regular rhythm, S1 normal heart sound present and S2 normal heart sound present RATE: regular rate RHYTHM: regular rhythm HEART SOUNDS: S1 normal heart sound present and S2 normal heart sound present GI: COMMON NORMALS: Normal to inspection, nondistended, normoactive bowel sounds present, Soft to palpation, non-tender, No hepatosplenomegaly present, no masses and no bruits PALPATION: Yes Soft to palpation and Yes No hepatosplenomegaly present Extremity: COMMON NORMALS: capillary refill normal, no clubbing, cyanosis or edema, no calf tenderness and no pedal edema Neuro: COMMON NORMALS: patient oriented x3 Psych: COMMON NORMALS: mental status grossly normal Data : 08/15/20 00:40 08/15/20 02:40 Micro: Microbiology 08/13/20 19:57 Urine Culture - Preliminary Urine,Voided Bacterial Antigens - Final 08/13/20 14:30 Blood Culture - Preliminary Blood NEGATIVE TO DATE 08/13/20 14:25 Blood Culture - Preliminary Blood NEGATIVE TO DATE A&P Assessment and plan (1) Acute and chronic respiratory failure with hypoxia: Secondary to COVID-19 pneumonia, viral pneumonitis, secondary bacterial infection, bilateral PEs, pulmonary infarct, and early component of acute respiratory distress syndrome -ct angio:significant bilateral pulmonary artery embolic burden. Largest clot begins in the proximal RIGHT main pulmonary artery extends predominantly into the RIGHT lower lobe pulmonary arterial system. There is branching of the thrombus into the segmental and subsegmental branches of the RIGHT lower lobe. Additional smaller emboli in the RIGHT upper and RIGHT middle lobes. Segmental emboli in the LEFT upper and subsegmental emboli in the LEFT lower lobes. Pulmonary artery is enlarged. Mild atherosclerosis aorta. Mild enlargement of LEFT heart chambers without significant RIGHT heart strain. There is extensive bilateral pulmonary opacifications. Groundglass attenuation with areas of increasing consolidation and opacification. Some of the opacificat ions are probably related to the emboli and infarcts, especially in the RIGHT lower lobe. Additional groundglass opacifications are probably related to Covid 19 diagnosis -Alternates from room air to 1 to 2 L, no respiratory distress, no hemodynamic compromise, normal sinus rhythm Plan: -Admit to viral ICU -Full code -Switch from heparin drip to Eliquis 10 mg twice daily -Decadron -Remdesivir -Broad-spectrum antibiotics vancomycin, Zosyn, azithromycin -Blood cultures, urine cultures, sputum cultures, urine bacterial antigens -Cardiac echocardiogram pending -Continue telemetry monitoring -Vitamin C zinc -Advair, albuterol -Oxygen therapy Plan for today continue aggressive pulmonary toilet, oxygen therapy, physical therapy, plan on discharging the next 24 hours Status: Acute (2) CAD (coronary artery disease): Status post stenting x3 Status: Acute (3) Hyperlipidemia: Continue statin Status: Acute (4) Hypertension: Status: Acute (5) Non-insulin dependent type 2 diabetes mellitus: Low-dose sliding scale, 8.2 Status: Acute (6) Pneumonia due to COVID-19 virus: Status: Acute (7) Secondary bacterial pneumonia: Status: Acute (8) Bilateral pulmonary embolism: Status: Acute (9) Pulmonary infarct: Status: Acute (10) Acute respiratory distress syndrome: Status: Acute (11) NSTEMI (non-ST elevated myocardial infarction): Likely supply demand ischemia from bilateral PEs, COVID-19, pneumonia, acu te respiratory failure -Aspirin, statin, monitor blood pressures, monitor troponins, monitor EKGs Status: Acute (12) Left leg DVT: On Eliquis Status: Acute Attestations Medical Necessity Statement*: Patient post hospitalization acute respiratory failure with hypoxia secondary COVID-19, secondary bacterial infection, bilateral PEs, pulmonary infarct, early ards Coding Level of Care Code Acute 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
[2020-08-15] MEDS: dexamethasone 4 mg/mL INJ 6 MG IVP (11:34)
[2020-08-15] MEDS: azithromycin 500 MG in sodium chloride 0.9% 250 ML 250 MG IV (13:56)
[2020-08-15 16:10] LABS: Glucose Point of Care 275 mg/dL (70-110)
--- NOTE | 2020-08-15 22:59 | PC.NURSE ---
PT RESTING IN BED. PT C/O THAT IV HAS GONE OFF FOR HOURS. THIS NURSE FLUSHED IV AND HUNG NEW ABT. PT THEN TOLD RT THAT IV HAS BEEN GOING OFF FOR 45 MINUTES. RT ASKED IF THE NURSE WAS JUST IN THERE. PT DENIED NURSE BEING IN. THIS NURSE WENT BACK IN AND REASSURED CARE FOR PT. WILL CONTINUE TO MONITOR.
[2020-08-16] VITALS (28 sets, daily range): BP systolic 100–153; BP diastolic 55–92; PULSE 53–90; RESP 15–37; TEMP 36.2–36.8; O2SAT 89–98
[2020-08-16] MEDS: sodium chloride 0.9% 1,000 ML 10 ML IV (02:04)
[2020-08-16 04:10] LABS: ABG PCO2 29.4 mmHg (35-45); ABG PH Result 7.45 (7.35-7.45); Arterial Blood Gas Hematocrit 34.7 % (42-52); Base Excess ABG -2.6 mmol/L (-2.0-2.0); Blood Gas Allen Test Pos; Blood Gas Sample Site Radial, right; Blood Gas Sample Type Arterial; HCO3 ABG 20.5 mmol/L (22-26); PO2 ABG 68.7 mmHg (80.0-100.0)
[2020-08-16] MEDS: piperacillin-tazobactam 3.375 GM in sodium chloride 0.9% (plus) 50 ML IV ×3 (05:42→20:13)
[2020-08-16 05:54] LABS: Basophils % 0.1 %; Eosinophils # 0.1 10^3/uL (0.0-0.8); Eosinophils % 1.3 %; Hematocrit 36.5 % (42.0-52.0); Hemoglobin 11.8 g/dL (11.7-16.6); Lymphocytes # 0.6 10^3/uL (0.8-4.8); Lymphocytes % 7.9 %; Mean Corpuscular HGB Conc 32.3 g/dL (30.0-36.0); Mean Corpuscular Volume 89.7 fL (80-94); Mean Platelet Volume 10.5 fL (7.4-10.4); Monocytes # 0.5 10^3/uL (0.2-0.9); Monocytes % 6.6 %; Neutrophils # 6.19 10^3/uL (1.8-7.7); Neutrophils % 79.6 %; Nucleated Red Blood Cells % 0 %; Platelet Count 264 10^3/cmm (130-400); Red Blood Count 4.07 10^6/uL (4.1-5.3); Red Cell Distribution Width 14.1 % (12.1-15.1); White Blood Count 7.8 10^3/uL (4.0-10.0)
--- NOTE | 2020-08-16 06:00 | ECG_ITS ---
[facility] ED Test Date: 2020-08-16 Pat Name: Vinod Barker Department: Room: ICU19 Gender: Male All Source Intelligence Technician: : 1940 Requested By: Jordon Anders Order Number: [id number] Mickey MD: Brenda Patterson M.D. Measurements Intervals Geraldine Rate: 60 P: 18 IN: 206 QRS: -9 QRSD: 102 T: 98 QT: 370 QTc: 371 Interpretive Statements SINUS RHYTHM MODERATE VOLTAGE CRITERIA FOR LVH, CONSIDER NORMAL VARIANT INFERIOR MYOCARDIAL INFARCTION [40+ ms Q WAVE AND/OR ST/T ABNORMALITY IN II/aVF], PROBABLY OLD POSSIBLE ANTEROSEPTAL MYOCARDIAL INFARCTION [30 ms Q WAVE IN V1-V4], OF INDETERMINATE AGE Compared to ECG 08/15/2020 04:18:55 Sinus bradycardia no longer present First degree AV block no longer present Myocardial infarct finding still present Electronically Signed On 08-25-2020 20:37:40 KENNEL ASSISTANT by Brenda Patterson M.D. [email or web address]/[id number]
--- NOTE | 2020-08-16 06:04 | PC.NURSE ---
PT WAS UP AND DOWN ALL NIGHT. PT IS ANXIOUS AND WANTS TO GO HOME. PT STATES THAT HE IS HAPPY WITH THE CARE HERE, BUT IS READY FOR THE DOCTOR TO COME IN AND TELL HIM THAT HE CAN LEAVE. PT DENIES PAIN. PT PULLED OUT IV IN LEFT AC. WILL GIVE REPORT TO ONCOMING NURSE.
[2020-08-16 06:06] LABS: Vancomycin Trough 15.8 ug/mL (10-15)
[2020-08-16 06:10] LABS: INR 1.39 (0.8-1.2)
[2020-08-16 06:39] LABS: Alanine Aminotransferase 29 U/L (0-41); Albumin Level 3.4 g/dL (3.5-5.2); Alkaline Phosphatase 48 IU/L (40-130); Anion Gap 15.2 (5-19); Aspartate Amino Transferase 24 U/L (0-40); Blood Urea Nitrogen 20 mg/dL (8-23); C Reactive Protein 39.3 mg/L (0.0-4.9); Calcium 8.8 mg/dL (8.5-10.5); Carbon Dioxide 23 mmol/L (22-29); Chloride 102 mmol/L (98-107); Globulin 3.3 g/dL (1.3-4.6); Glucose 184 mg/dL (65-115); Osmolality Calculated 289 mOsm/kg (285-295); Phosphorus 3.6 mg/dL (2.5-4.5); Potassium 4.2 mmol/L (3.5-5.1); Sodium 136 mmol/L (136-145); Total Bilirubin 0.2 mg/dL (0.15-1.2); Total Protein 6.7 g/dL (6.6-8.7)
[2020-08-16 06:46] LABS: NT Pro B Type Natriuretic Pept 382 pg/mL (0-450)
[2020-08-16 06:51] LABS: D Dimer 10.45 ug/mIFEU (0-0.59)
[2020-08-16 06:58] LABS: Creatine Phosphokinase 78 U/L (39-308)
--- NOTE | 2020-08-16 07:00 | XR_ITS ---
WS: [id number] XR chest 1V portable [id number] REASON FOR EXAM: sob FINDINGS: The chest is unchanged compared to the previous day. Infiltrative changes are seen in both lower lungs and in the periphery of the left mid lung. Findings are compatible with acute/subacute pneumonitis. Mediastinum is prominent, likely due to excess mediastinal fat. XR/XR chest 1V portable [id number] IMPRESSION: Findings compatible with acute/subacute pneumonitis as above. No significant in terval change.
[2020-08-16 07:24] LABS: Glucose Point of Care 191 mg/dL (70-110)
[2020-08-16] MEDS: vancomycin 1,500 MG/300 ML PIGGYBACK 200 MG IV (07:48)
[2020-08-16] MEDS: ascorbic acid 500 mg Tablet 1000 MG PO ×2 (08:09→17:00)
[2020-08-16] MEDS: pantoprazole DR 40 mg Tablet PO (08:10)
[2020-08-16] MEDS: benzonatate 100 mg Capsule PO ×3 (08:10→20:14)
[2020-08-16] MEDS: aspirin 81 mg EC Tablet PO (08:10)
[2020-08-16] MEDS: apixaban 5 mg Tablet 10 MG PO ×2 (08:10→17:00)
[2020-08-16] MEDS: atorvastatin 40 mg Tablet 20 MG PO (08:10)
[2020-08-16] MEDS: zinc gluconate 50 mg Tablet PO (08:10)
--- NOTE | 2020-08-16 08:30 | PC.SOCIAL ---
IMM Page 2 of IMM explained to family by phone. Initialed, dated, and timed and will be placed in patient's chart upon d/c from the hospital.
[2020-08-16] MEDS: dexamethasone 4 mg/mL INJ 6 MG IVP (11:15)
[2020-08-16 11:33] LABS: Glucose Point of Care 139 mg/dL (70-110)
--- NOTE | 2020-08-16 14:21 | P.PN_ITS ---
Subjective Subjective: Interval history: No acute events overnight. Today morning patient had a coughing bout after which he was saturating 84% for 15 minutes and he was put on nasal cannula 1 L. Currently he is on room air saturating 94%. He is asking when can he go home. Denies any nausea, vomiting, headache, palpitation. Working well with physical therapy, Acapella and incentive spirome try. Vitals/I&O/Wt Last Vital Signs Temp 98.2 F 08/16/20 12:51 Pulse 65 08/16/20 14:00 Resp 18 08/16/20 14:00 BP 150/92 08/16/20 14:00 Pulse Ox 94 08/16/20 14:00 08/15/20 08/16/20 08/16/20 22:59 06:59 14:59 Intake Total 1300 / 2834.867 653.833 / 3488.700 950 / 950 Output Total 825 / 2375 450 / 2825 325 / 325 Balance 475 / 459.867 203.833 / 663.700 625 / 625 Physical Exam Narrative: EXAM NARRATIVE: General: No acute distress, AO x3 HEENT: PERRLA, pupils bilaterally equal and reactive Chest: Normal vesicular breath sounds, bilateral occasional rhonchi diffusely all over the lung calderon right more than left, anterior more than posterior, equal good air entry bilaterally CVS: S1-S2 regular, no murmurs, no tachycardia, no gallops, no rubs Abdomen: Soft, nontender, no organomegaly, bowel sounds present Neuro: No focal deficits, no facial deformity, AO x3, power 5/5 in all limbs Data : 08/16/20 05:30 08/16/20 05:30 Micro: Microbiology 08/13/20 19:57 Urine Culture - Final Urine,Voided Bacterial Antigens - Final A&P Assessment and plan (1) Acute and chronic respiratory failure with hypoxia: Status: Acute (2) Pneumonia due to COVID-19 virus: Status: Acute (3) Bilateral pulmonary embolism: Status: Acute (4) Pulmonary infarct: Status: Acute (5) Secondary bacterial pneumonia: Status: Acute (6) Acute respiratory distress syndrome: Status: Acute (7) NSTEMI (non-ST elevated myocardial infarction): Likely supply demand ischemia from bilateral PEs, COVID-19, pneumonia, acute respiratory failure -Aspirin, statin, monitor blood pressures, monitor troponins, monitor EKGs Status: Acute (8) Left leg DVT: On Eliquis Status: Acute (9) Non-insulin dependent type 2 diabetes mellitus: Low-dose sliding scale, 8.2 Status: Acute (10) Hypertension: Status: Acute (11) Hyperlipidemia: Continue statin Status: Acute (12) CAD (coronary artery disease): Status post stenting x3 Status: Acute Additional A&P Information Hypoxic respiratory failure secondary to COVID-19 pneumonia along with bilateral pulmonary embolism. Continue oxygen supplementation keeping saturation over 92%. Ambulate patient and monitor oxygen supplementation. Continue with anticoagulation with 10 mg twice daily of Eliquis for for 7 days followed by 5 mg twice daily. Patient would most likely require 6-month course. Patient has been started on remdesivir with last dose to be given tomorrow. We will continue the same for now. Continue with IV Decadron will transition over to prednisone tomorrow. Continue with vitamin C, zinc. Spiriva, Advair. Tessalon Perles 100 mg 3 times daily. Robitussin. Aggressive pulmonary toilet with Acapella and incentive spirometry. Low chances of bacterial pneumonia at present. Procalcitonin negative, no leukocytosis.. Vancomycin and azithromycin. Check MRSA swab. We will stop Zosyn the patient remains afebrile and no leukocytosis the next 34 hours. Hypertension: Goal blood pressure less than 140/90 mmHg. Lisinopril 10 mg daily. Check iron panel, TSH. Lipid panel appreciated. Discharge planning: If patient continues to do well can transition over to medical general floor tomorrow and possible discharge mid week depending on patient's clinical course and oxygen requirement. Full code. Cardiac diet. Eliquis will help with DVT prophylaxis as well. Attestations Medical Necessity Statement*: Needs further hospitalization for management of hypoxia secondary to COVID-19 pneumonia, bilateral pulmonary embolism Time Spent in Patient Care: Greater than 35 minutes (>than 50% of time spent in counselling and/or direct pt care on unit) . Coding Level of Care Code Acute Hand Stripper for [facility] Fwd Diagnoses Acute and chronic respiratory failure with hypoxia J96.21 Pneumonia due to COVID-19 virus U07.1; J12.89 Bilateral pulmonary embolism I26.99 Pulmonary infarct I26.99 Secondary bacterial pneumonia J15.9 Acute respiratory distress syndrome J80 NSTEMI (non-ST elevated myocardial infarction) I21.4 Left leg DVT I82.402 Non-insulin dependent type 2 diabetes mellitus E11.9 Hypertension I10 Hyperlipidemia E78.5 CAD (coronary artery disease) I25.10
[2020-08-16] MEDS: lisinopril 20 mg Tablet 10 MG PO (14:46)
--- NOTE | 2020-08-16 15:18 | DCPLANNER ---
IMM completed over the phone with pt since pt is in the VICU. Pt stated he understood and had no questions.
[2020-08-16 16:08] LABS: Glucose Point of Care 301 mg/dL (70-110)
[2020-08-16 16:55] LABS: Thyroid Stimulating Hormone 1.63 uIU/mL (0.27-4.20)
[2020-08-16 18:07] LABS: Iron 84 ug/dL (59-158); Percent Saturation 33.3 % (20-50); Total Iron Binding Capacity 252 mcg/dl; Unsaturated Iron Binding 168 ug/dL (112-347)
[2020-08-17] VITALS (23 sets, daily range): BP systolic 97–143; BP diastolic 43–71; PULSE 56–87; RESP 15–28; TEMP 36.4–36.8; O2SAT 81–96
[2020-08-17] MEDS: piperacillin-tazobactam 3.375 GM in sodium chloride 0.9% (plus) 50 ML IV ×3 (04:32→20:58)
[2020-08-17 04:59] LABS: Basophils % 0.1 %; Eosinophils # 0.1 10^3/uL (0.0-0.8); Eosinophils % 0.9 %; Hematocrit 33.1 % (42.0-52.0); Hemoglobin 10.9 g/dL (11.7-16.6); Lymphocytes # 0.6 10^3/uL (0.8-4.8); Lymphocytes % 8.4 %; Mean Corpuscular HGB Conc 32.9 g/dL (30.0-36.0); Mean Corpuscular Hemoglobin 29.5 pg (28.0-34.0); Mean Corpuscular Volume 89.7 fL (80-94); Mean Platelet Volume 10.6 fL (7.4-10.4); Monocytes # 0.5 10^3/uL (0.2-0.9); Monocytes % 6.9 %; Neutrophils # 6.01 10^3/uL (1.8-7.7); Neutrophils % 81.5 %; Nucleated Red Blood Cells % 0 %; Platelet Count 220 10^3/cmm (130-400); Red Blood Count 3.69 10^6/uL (4.1-5.3); Red Cell Distribution Width 14.2 % (12.1-15.1); White Blood Count 7.4 10^3/uL (4.0-10.0)
[2020-08-17 05:21] LABS: Alanine Aminotransferase 32 U/L (0-41); Albumin Level 3.1 g/dL (3.5-5.2); Alkaline Phosphatase 46 IU/L (40-130); Anion Gap 15.4 (5-19); Aspartate Amino Transferase 23 U/L (0-40); Blood Urea Nitrogen 22 mg/dL (8-23); Calcium 8.3 mg/dL (8.5-10.5); Carbon Dioxide 20 mmol/L (22-29); Chloride 106 mmol/L (98-107); Creatinine Clr Calc Pharmacy 70.1523; Glucose 229 mg/dL (65-115); Osmolality Calculated 295 mOsm/kg (285-295); Potassium 4.4 mmol/L (3.5-5.1); Sodium 137 mmol/L (136-145); Total Bilirubin 0.3 mg/dL (0.15-1.2); Total Protein 6.1 g/dL (6.6-8.7)
[2020-08-17 05:27] LABS: C Reactive Protein 49.8 mg/L (0.0-4.9); Creatine Phosphokinase 68 U/L (39-308); Lactate Dehydrogenase 301 U/L (135-225); NT Pro B Type Natriuretic Pept 280 pg/mL (0-450)
[2020-08-17 05:53] LABS: D Dimer 7.15 ug/mIFEU (0-0.59)
[2020-08-17 05:59] LABS: Estmated Average Glucose 192; Hemoglobin A1C 8.3 % (4.0-6.0)
--- NOTE | 2020-08-17 06:00 | XR_ITS ---
WS: [id number] XR chest 1V portable [id number] REASON FOR EXAM: covid FINDINGS: Compared to the previous examination of 08/16/2020, the interstitial and alveolar infiltrative change s in the lower lungs, predominating on the left, are relatively unchanged. No new finding is identified. No other interval change is noted. XR/XR chest 1V portable [id number] IMPRESSION: Stable abnormal chest.
--- NOTE | 2020-08-17 06:28 | PC.NURSE ---
patient in bed most of the shift. urinary output about 200-300 several times per this shift with urinal and minimal assistance. Patient up to chair this am with standby assistance. Held oxygen saturations well over night with no bradycardic episodes last night. patient to go to [facility] floor unit today if space is available. Will continue to monitor and assist as needed.
[2020-08-17 08:19] LABS: Glucose Point of Care 156 mg/dL (70-110)
[2020-08-17] MEDS: zinc gluconate 50 mg Tablet PO (08:31)
[2020-08-17] MEDS: ascorbic acid 500 mg Tablet 1000 MG PO ×2 (08:31→17:00)
[2020-08-17] MEDS: benzonatate 100 mg Capsule PO ×3 (08:31→20:58)
[2020-08-17] MEDS: lisinopril 20 mg Tablet 10 MG PO (08:32)
[2020-08-17] MEDS: pantoprazole DR 40 mg Tablet PO (08:32)
[2020-08-17] MEDS: apixaban 5 mg Tablet 10 MG PO ×2 (08:32→17:00)
[2020-08-17] MEDS: aspirin 81 mg EC Tablet PO (08:32)
[2020-08-17] MEDS: atorvastatin 40 mg Tablet 20 MG PO (08:32)
[2020-08-17 09:47] LABS: Coronavirus Lab Test PTC Positive
[2020-08-17 11:32] LABS: Glucose Point of Care 178 mg/dL (70-110)
[2020-08-17] MEDS: dexamethasone 4 mg/mL INJ 6 MG IVP (11:42)
--- NOTE | 2020-08-17 12:31 | PC.RESP ---
PULMONARY REHAB INFORMATION SENT TO PATIENT.
[2020-08-17] MEDS: bisacodyl 5 mg Tablet 10 MG PO (13:23)
[2020-08-17] MEDS: sennosides-docusate Tablet 2 TAB PO ×2 (13:29→17:00)
[2020-08-17] MEDS: polyethylene glycol 3350 Pkt 17 gm PO (15:33)
--- NOTE | 2020-08-17 15:50 | PM.PN ---
Subjective Subjective: Interval history: No acute events overnight. Sitting comfortably in chair in jovial mood. Has good energy levels. Walking up and down in the room. Saturating more than 90% on room air. Denies any nausea, vomiting, headache. Asking when can go home. Working well with incentive spirometry and Acapella. Asking questions what he needs to do post discharge and how much work he can do in his yard post discharge. Vitals/I&O/Wt Last Vital Signs Temp 98.1 F 08/17/20 12:00 Pulse 79 08/17/20 14:00 Resp 18 08/17/20 14:00 BP 112/61 08/17/20 14:00 Pulse Ox 96 08/17/20 14:00 08/17/20 08/17/20 08/17/20 06:59 14:59 22:59 Intake Total 300 / 1980 770 / 770 Output Total 400 / 1700 475 / 475 Balance -100 / 280 295 / 295 Physical Exam Narrative: EXAM NARRATIVE: General: No acute distress, AO x3 HEENT: PERRLA, pupils bilaterally equal and reactive Chest: Normal vesicular breath sounds, bilateral occasional rhonchi diffusely all over the lung calderon right more than left, anterior more than posterior, equal good air entry bilaterally CVS: S1-S2 regular, no murmurs, no tachycardia, no gallops, no rubs Abdomen: Soft, nontender, no organomegaly, bowel sounds present Neuro: No focal deficits, no facial deformity, AO x3, power 5/5 in all limbs Data : 08/17/20 04:00 08/17/20 04:00 A&P Assessment and plan (1) Acute and chronic respiratory failure with hypoxia: Status: Acute (2) Pneumonia due to COVID-19 virus: Status: Acute (3) Bilateral pulmonary embolism: Status: Acute (4) Pulmonary infarct: Status: Acute (5) Secondary bacterial pneumonia: Status: Acute (6) Acute respiratory distress syndrome: Status: Acute (7) NSTEMI (non-ST elevated myocardial infarction): Likely supply demand ischemia from bilateral PEs, COVID-19, pneumonia, acute respiratory failure -Aspirin, statin, monitor blood pressures, monitor troponins, monitor EKGs Status: Acute (8) Left leg DVT: On Eliquis Status: Acute (9) Non-insulin dependent type 2 diabetes mellitus: Low-dose sliding scale, 8.2 Status: Acute (10) Hypertension: Status: Acute (11) Hyperlipidemia: Continue statin Status: Acute (12) CAD (coronary artery disease): Status post stenting x3 Status: Acute Additional A&P Information Hypoxic respiratory failure secondary to COVID-19 pneumonia along with bilateral pulmonary embolism. Continue ambulation and monitoring oxygenation on room air. Continue with anticoagulation with 10 mg twice daily of Eliquis for for 7 days followed by 5 mg twice daily. Patient would most likely require 6-month course. Last dose of remdesivir today. Transitioned over to oral prednisone. Most likely patient will require a 2-week course of slow steroid taper. Continue with vitamin C, zinc. Spiriva, Advair. Tessalon Perles 100 mg 3 times daily. Robitussin. Aggressive pulmonary toilet with Acapella and incentive spirometry. Low chances of bacterial pneumonia at present. Procalcitonin negative, no leukocytosis. Vancomycin and azithromycin stopped yesterday. We will stop Zosyn as well today. Hypertension: Goal blood pressure less than 140/90 mmHg. Lisinopril 10 mg daily. Check iron panel, TSH. Lipid panel appreciated. Discharge planning: Transition over to medical surgical floor today. If patient continues to remain the same most likely will discharge tomorrow on anticoagulation, slow steroid taper. We will continue to monitor for afebrile status and cardiac markers along with white count in next 24 hours. Home O2 evaluation prior to discharge. Full code. Cardiac diet. Eliquis will help with DVT prophylaxis as well. Attestations Medical Necessity Statement*: Patient is currently hospitalization for completion of treatment with remdesivir for COVID-19 pneumonia leading to hypoxia, pulmonary embolism. Time Spent in Patient Care: Greater than 35 minutes (>than 50% of time spent in counselling and/or direct pt care on unit). Coding Level of Care Code Acute Central Office Associate for [facility] Fwd Diagnoses Acute and chronic respiratory failure with hypoxia J96.21 Pneumonia due to COVID-19 virus U07.1; J12.89 Bilateral pulmonary embolism I26.99 Pulmonary infarct I26.99 Secondary bacterial pneumonia J15.9 Acute respiratory distress syndrome J80 NSTEMI (non-ST elevated myocardial infarction) I21.4 Left leg DVT I82.402 Non-insulin dependent type 2 diabetes mellitus E11.9 Hypertension I10 Hyperlipidemia E78.5 CAD (coronary artery disease) I25.10
[2020-08-17 16:23] LABS: Glucose Point of Care 177 mg/dL (70-110)
[2020-08-17 21:24] LABS: Glucose Point of Care 237 mg/dL (70-110)
[2020-08-18] VITALS (8 sets, daily range): BP systolic 123–133; BP diastolic 69–72; PULSE 59–78; RESP 16–18; TEMP 36.5–36.8; O2SAT 89–95
[2020-08-18] MEDS: piperacillin-tazobactam 3.375 GM in sodium chloride 0.9% (plus) 50 ML IV (04:11)
[2020-08-18 05:39] LABS: Basophils % 0.1 %; Eosinophils # 0.1 10^3/uL (0.0-0.8); Hematocrit 32.4 % (42.0-52.0); Hemoglobin 10.6 g/dL (11.7-16.6); Lymphocytes # 0.7 10^3/uL (0.8-4.8); Lymphocytes % 7.7 %; Mean Corpuscular HGB Conc 32.7 g/dL (30.0-36.0); Mean Corpuscular Volume 91.8 fL (80-94); Mean Platelet Volume 10.9 fL (7.4-10.4); Monocytes # 0.6 10^3/uL (0.2-0.9); Monocytes % 6.3 %; Neutrophils # 7.85 10^3/uL (1.8-7.7); Neutrophils % 83.3 %; Nucleated Red Blood Cells % 0 %; Platelet Count 242 10^3/cmm (130-400); Red Blood Count 3.53 10^6/uL (4.1-5.3); Red Cell Distribution Width 14.5 % (12.1-15.1); White Blood Count 9.4 10^3/uL (4.0-10.0)
[2020-08-18 05:46] LABS: D Dimer 3.94 ug/mIFEU (0-0.59)
[2020-08-18 05:54] LABS: Alanine Aminotransferase 35 U/L (0-41); Albumin Level 3.1 g/dL (3.5-5.2); Alkaline Phosphatase 48 IU/L (40-130); Anion Gap 16.1 (5-19); Aspartate Amino Transferase 20 U/L (0-40); Blood Urea Nitrogen 22 mg/dL (8-23); Carbon Dioxide 20 mmol/L (22-29); Chloride 104 mmol/L (98-107); Globulin 2.5 g/dL (1.3-4.6); Glucose 230 mg/dL (65-115); Osmolality Calculated 293 mOsm/kg (285-295); Potassium 4.1 mmol/L (3.5-5.1); Sodium 136 mmol/L (136-145); Total Bilirubin 0.2 mg/dL (0.15-1.2); Total Protein 5.6 g/dL (6.6-8.7)
[2020-08-18 05:55] LABS: C Reactive Protein 45.5 mg/L (0.0-4.9); Creatine Phosphokinase 122 U/L (39-308); Lactate Dehydrogenase 263 U/L (135-225); NT Pro B Type Natriuretic Pept 243 pg/mL (0-450)
[2020-08-18 05:59] LABS: Calcium 8.5 mg/dL (8.5-10.5)
[2020-08-18 06:48] LABS: Glucose Point of Care 173 mg/dL (70-110)
[2020-08-18] MEDS: apixaban 5 mg Tablet 10 MG PO (08:55)
[2020-08-18] MEDS: lisinopril 20 mg Tablet 10 MG PO (08:56)
[2020-08-18] MEDS: benzonatate 100 mg Capsule PO (08:56)
[2020-08-18] MEDS: pantoprazole DR 40 mg Tablet PO (08:56)
[2020-08-18] MEDS: zinc gluconate 50 mg Tablet PO (08:56)
[2020-08-18] MEDS: ascorbic acid 500 mg Tablet 1000 MG PO (08:56)
[2020-08-18] MEDS: atorvastatin 40 mg Tablet 20 MG PO (08:57)
[2020-08-18] MEDS: predniSONE 20 mg Tablet 40 MG PO (08:57)
[2020-08-18] MEDS: aspirin 81 mg EC Tablet PO (08:57)
--- NOTE | 2020-08-18 09:00 | PC.SOCIAL ---
IMM Updated Page 2 of IMM updated with patient over the phone. He verbalizes understanding and states he's ready to go. Initialed, dated, and timed and placed back in chart.
--- NOTE | 2020-08-18 09:54 | PM.DCS ---
Discharge Providers Date of Admission: 08/13/20 13:59 Date of Discharge: August 18, 2020 Attending Provider at Admission: Jordon Anders MD Attending Provider at Discharge: Ramu Sloan MD Primary Care Provider: Eddie Paz Diagnoses at Discharge Discharge Diagnosis (1) Acute and chronic respiratory failure with hypoxia: Status: Acute (2) Pneumonia due to COVID-19 virus: Status: Acute (3) Bilateral pulmonary embolism: Status: Acute (4) Pulmonary infarct: Status: Acute (5) Secondary bacterial pneumonia: Status: Acute (6) Acute respiratory distress syndrome: Status: Acute (7) NSTEMI (non-ST elevated myocardial infarction): Status: Acute (8) Left leg DVT: Status: Acute (9) Non-insulin dependent type 2 diabetes mellitus: Status: Acute (10) Hypertension: Status: Acute (11) Hyperlipidemia: Status: Acute (12) CAD (coronary artery disease): Status: Acute Reason for Visit Reason for Visit: SOB Hospital Course Hospital Course Vinod Barker is a 80 year old male with a past medical history of CAD status post stenting x3, [id number] type 2 diabetes mellitus, hypertension, hyperlipidemia, who presents to [facility] due to complaints of chest pain, shortness of breath, fevers, of fatigue, malaise. Patient tells me that he tested positive for Covid a few weeks ago, he has fevers, fatigue, malaise, chills. However starting a few days ago, he is developed shortness of breath, shortness of breath at rest, with chest pain, substernal, nonradiating, does have a CAD history, status post stenting x3, no history of strokes, does have type 2 diabetes, no history of COPD, did smoke for 10 years in his 20s, no falls, no injuries, no recent travel, no calf pain or calf swelling. He also reports presyncopal episodes a few days ago, especially when changing positions, lightheadedness, dizziness, denies ever passing out. CT angio done on admission showed significant bilateral pulmonary embolism with largest clot whichbegins in the proximal RIGHT main pulmonary artery extends predominantly into the RIGHT lower lobe pulmonary arterial system. There is branching of the thrombus into the segmental and subsegmental branches of the RIGHT lower lobe. Additional smaller emboli in the RIGHT upper and RIGHT middle lobes. Segmental emboli in the LEFT upper and subsegmental emboli in the LEFT lower lobes. Pulmonary artery is enlarged. Mild atherosclerosis aorta. Mild enlargement of LEFT heart chambers without significant RIGHT heart strain. Echocardiogram of the heart was done which showed EF of 40 to 45% with grade 1 diastolic dysfunction mild TR, RVSP of 25 to 30 mmHg. He was admitted to viral ICU and started on heparin drip for pulmonary embolism which was later transitioned over to oral Eliquis. He was also started on treatment for moderate COVID-19 pneumonia with remdesivir and Decadron. He responded well to the treatment has been has been on room air for last 3 days both at rest and on ambulation. He is been discharged hemodynamically stable condition after completion of antiviral treatment on Eliquis 10 mg twice daily for three more days after which he supposed to take 5 mg twice daily for 6 months at least. He also supposed to take Advair and Spiriva for next 2 weeks along with vitamin C and zinc. He is been discharged with advised to follow-up with his primary care provider within next 1 to 3 days. He has been counseled regarding early ambulation, appropriate physical therapy while at house. He has been advised not to wait for bone lesions at present to avoid reactive airway symptoms. Patient verbalizes understanding. During hospitalization he was found to have mildly elevated blood pressure for which his home dose of lisinopril was increased to 10 mg daily. Physical Exam Narrative: EXAM NARRATIVE: General: No acute distress, AO x3 HEENT: PERRLA, pupils bilaterally equal and reactive Chest: Normal vesicular breath sounds, bilateral occasional rhonchi diffusely all over the lung calderon right more than left, anterior more than posterior, equal good air entry bilaterally CVS: S1-S2 regular, no murmurs, no tachycardia, no gallops, no rubs Abdomen: Soft, nontender, no organomegaly, bowel sounds present Neuro: No focal deficits, no facial deformity, AO x3, power 5/5 in all limbs Discharge Data Data Completed and Pending: Completed Studies During Hospitalization Category Date Time Status CT angio chest PE protcl [id number] Urge nt Cat Scan 08/13/20 12:48 Completed XR chest 1V dione ble 13288 Q48H Exams 08/17/20 06:00 Completed XR chest 1V dione ble [id number] Routine Exams 08/14/20 07:00 Completed XR chest 1V dione ble [id number] Routine Exams 08/15/20 07:00 Completed XR chest 1V dione ble [id number] Routine Exams 08/16/20 07:00 Completed XR chest 1V dione ble [id number] Stat Exams 08/13/20 11:05 Completed CV echo complete* [id number] Routine Ultrasound 08/14/20 17:17 [place] [id number] Routin e Ultrasound 08/14/20 17:17 Completed Pending at discharge Category Date Time Status XR chest 1V dione ble [id number] Q48H Exams 08/19/20 06:00 Ordered XR chest 1V dione ble 11536 Q48H Exams 08/21/20 06:00 Ordered Blood Culture Sta t Lab 08/13/20 14:30 Results C Reactive Protei n AM LABS Lab 08/19/20 04:00 Ordered Creatine Phosphok inase AM LABS Lab 08/19/20 04:00 Ordered D Dimer AM LABS Lab 08/19/20 04:00 Ordered Lactate Dehydroge nase AM LABS Lab 08/19/20 04:00 Ordered NT Pro B Type Tammy riuretic Pept AM L ABS Lab 08/19/20 04:00 Ordered Sputum Culture an d Gram Stain Stat Lab 08/13/20 17:17 Uncollected Labs from last 24 hours 08/18/20 08/18/20 08/18/20 06:21 04:54 04:54 WBC RBC Hgb Hct MCV MCH MCHC RDW Plt Count MPV Neut % (Auto) Lymph % (Auto) Haakon % (Auto) Eos % (Auto) Baso % (Auto) Neut # (Auto) Lymph # (Auto) Haakon # (Auto) Eos # (Auto) Baso # (Auto) Nucleated RBC % (a uto) Nucleated RBCs # D-Dimer 3.94 H Sodium Potassium Chloride Carbon Dioxide Anion Gap BUN Creatinine GFR Calculation Glucose POC Glucose 173 Calculated Osmolal ity Calcium Total Bilirubin AST ALT Alkaline Phosphata se Lactate Dehydrogen ase 263 H Creatine Kinase 122 C-Reactive Protein 45.5 H NT-Pro-B Natriuret Pep 243 Total Protein Albumin Globulin 08/18/20 08/18/20 08/17/20 04:54 04:54 19:45 WBC 9.4 RBC 3.53 L Hgb 10.6 L Hct 32.4 L MCV 91.8 MCH 30.0 MCHC 32.7 RDW 14.5 Plt Count 242 MPV 10.9 H Neut % (Auto) 83.3 Lymph % (Auto) 7.7 Haakon % (Auto) 6.3 Eos % (Auto) 1.0 Baso % (Auto) 0.1 Neut # (Auto) 7.85 H Lymph # (Auto) 0.7 L Haakon # (Auto) 0.6 Eos # (Auto) 0.1 Baso # (Auto) 0.0 Nucleated RBC % (a uto) 0 Nucleated RBCs # 0.0 D-Dimer Sodium 136 Potassium 4.1 Chloride 104 Carbon Dioxide 20 L Anion Gap 16.1 BUN 22 Creatinine 0.8 GFR Calculation Not Reportable Glucose 230 H POC Glucose 237 Calculated Osmolal ity 293 Calcium 8.5 Total Bilirubin 0.2 AST 20 ALT 35 Alkaline Phosphata se 48 Lactate Dehydrogen ase Creatine Kinase C-Reactive Protein NT-Pro-B Natriuret Pep Total Protein 5.6 L Albumin 3.1 L Globulin 2.5 08/17/20 08/17/20 16:18 11:27 WBC RBC Hgb Hct MCV MCH MCHC RDW Plt Count MPV Neut % (Auto) Lymph % (Auto) Haakon % (Auto) Eos % (Auto) Baso % (Auto) Neut # (Auto) Lymph # (Auto) Haakon # (Auto) Eos # (Auto) Baso # (Auto) Nucleated RBC % (a uto) Nucleated RBCs # D-Dimer Sodium Potassium Chloride Carbon Dioxide Anion Gap BUN Creatinine GFR Calculation Glucose POC Glucose 177 178 Calculated Osmolal ity Calcium Total Bilirubin AST ALT Alkaline Phosphata se Lactate Dehydrogen ase Creatine Kinase C-Reactive Protein NT-Pro-B Natriuret Pep Total Protein Albumin Globulin Vitals: Last Vital Signs Temp 97.7 F 08/18/20 07:43 Pulse 76 08/18/20 09:18 Resp 16 08/18/20 09:13 BP 133/70 08/18/20 07:43 Pulse Ox 92 08/18/20 09:13 Discharge Plan Discharge Patient Disposition: Home Condition: Stable Prescriptions: New Vitamin C 500 mg Tablet 1,000 mg PO BID Qty: 60 RF: 0 benzonatate 100 mg Capsule 100 mg PO TID PRN (Reason: cough) Qty: 10 RF: 0 Advair Diskus 250-50 mcg/dose Blister With Device 1 puff inhalation BID.RESPIRATORY 14 Days Qty: 28 RF: 0 lisinopril 20 mg Tablet 10 mg PO DAILY 30 Days Qty: 30 RF: 0 pantoprazole 40 mg Tablet,Delayed Release (Dr/Ec) 40 mg PO DAILY Qty: 14 RF: 0 Spiriva with HandiHaler 18 mcg Capsule, W/Inhalation Device 18 mcg inhalation DAILY.RESPIRATORY Qty: 14 RF: 0 zinc gluconate 50 mg Tablet 50 mg PO DAILY Qty: 30 RF: 0 Medrol (John) 4 mg tablets,dose pack See Rx Instructions .ROUTE .COMPLEX Qty: 21 RF: 0 Eliquis DVT-PE Treat 30D Start 5 mg (74 tabs) tablets,dose pack See Rx Instructions .ROUTE .COMPLEX Qty: 74 RF: 0 Continued metformin 500 mg tablet 500 mg PO BID RF: 0 simvastatin 20 mg tablet 20 mg PO DAILY RF: 0 Discontinued benzonatate 200 mg capsule 200 mg PO TID PRN (Reason: Cough) RF: 0 lisinopril 2.5 mg tablet 2.5 mg PO DAILY RF: 0 Discharge Orders: Discharge Order (Routine); Ordered 08/18/20 Ordered By: Ramu Sloan Referrals: Eddie Paz [Primary Care Provider] - 09/01/20 10:00 am Discharge Diet: Cardiac and Diabetic Discharge Activity: Resume usual activity Patient Instructions: Metered-Dose Inhaler, Benzonatate (By mouth), Lisinopril (By mouth), Methylprednisolone (By mouth), Pantoprazole (By mouth), Fluticasone/Salmeterol (By breathing), Tiotropium (By breathing), Apixaban (By mouth), Pneumonia (GEN), Pneumonia Stoplight Activity Restrictions/Additional Instructions: Follow-up with your primary care provider within next 1 week. Continue taking medications as prescribed. Continue taking Eliquis 10 mg twice daily for 3 more days followed by 5 mg twice daily for next 6 months at least. Discharge Attestations Time Spent in Discharge Care*: greater than 30 min Specific Discharge Activities: educating patient, discussing with pcp/other providers, discussing with high risk case manager/social workers/dc planners, documenting/other paperwork and evaluating patient/reviewing data Status at Discharge: Cognitive status at discharge: cognitively intact, Behavioral status at discharge: cooperative, Functional status at discharge: independent ambulation Overall status at discharge: patient is back to baseline Quality Metrics Clinical Quality Measures During this hospital stay, did patient experience: VTE Contraindication to Overlap Therapy: Overlap therapy prescribed VTE Discharge Education: Education about anticoagulant therapy/Care Notes given Deep Vein Thrombosis/Pulmonary Embolism Present on Admission: Yes Coding Level of Care Code Acute Railroad Operating Engineer for g Fwd Diagnoses Acute and chronic respiratory failure with hypoxia J96.21 Pneumonia due to COVID-19 virus U07.1; J12.89 Bilateral pulmonary embolism I26.99 Pulmonary infarct I26.99 Secondary bacterial pneumonia J15.9 Acute respiratory distress syndrome J80 NSTEMI (non-ST elevated myocardial infarction) I21.4 Left leg DVT I82.402 Non-insulin dependent type 2 diabetes mellitus E11.9 Hypertension I10 Hyperlipidemia E78.5 CAD (coronary artery disease) I25.10
[2020-08-18 10:49] LABS: Glucose Point of Care 238 mg/dL (70-110)
--- NOTE | 2020-08-20 13:03 | PC.SOCIAL ---
Spoke with the patient's on the phone about the discharge information they received. She stated that he was wore out and think that his nerves may be getting to him. We spoke about signs and symptoms to watch for such as; blue lips or face, fever of 104 or higher, trouble breathing or catching breath, chest pain lasting longer than 5 minute, confusion or trouble waking up. We also spoke about ways to improve the immune system, these included; eating and drinking well, eating fruits and vegetables, lean meat, low fat dairy products, keeping up with immunizations such as flu/pneumonia/shingles shots, going to all appointments and follow ups, lessening and stress. We also spoke about ways to stop or prevent the spread of the COVID 19. These included; social distancing at all times, washing hands longer than 20 seconds with a good lather, sanitizing surfaces in home and in vehicle, masking up when possible and washing any cloth masks after use and allow them to dry completely before next use, sneezing or coughing into arm, restricting company or going out in public. We spoke a little about the benefits of plasma donation. The did ask about about the patients inhaler. She wanted to know if her can take them at the same time or at different times, I called the [facility] pharmacy and the pharmacist stated that they can be used all at the same time. I informed the of this.
== END 2020-08-18 13:00 | disposition home or self-care (01) | DRG 177 ==
LOC: ER 13:49 → ICU 14:12 → MEDSURG 08-17 19:06
PROVIDERS: Internal Medicine; Admitting Provider Family Medicine; Emergency Provider Emergency Medicine; PCP Physician Assistant Medical; Visit Provider Student in an Organized Health Care Education/Training Program
DX: U07.1 COVID-19 (principal); J12.89 Other viral pneumonia; J96.21 Acute and chronic respiratory failure with hypoxia; J15.9 Unspecified bacterial pneumonia; I26.94 Multiple subsegmental thrombotic pulmonary emboli without acute cor pulmonale; I21.A1 Myocardial infarction type 2; I82.442 Acute embolism and thrombosis of left tibial vein; I25.10 Atherosclerotic heart disease of native coronary artery without angina pectoris; Z95.5 Presence of coronary angioplasty implant and graft; E11.9 Type 2 diabetes mellitus without complications; I10 Essential (primary) hypertension; E78.5 Hyperlipidemia, unspecified; Z87.891 Personal history of nicotine dependence; Z79.84 Long term (current) use of oral hypoglycemic drugs
CPT/HCPCS: 12345; 36415; 36416; 36600; 71045; 71275; 80053; 80061; 80202; 82550; 82728; 82803; 82962; 83036; 83540; 83550; 83605; 83615; 83735; 83880; 84100; 84145; 84443; 84484; 85025; 85378; 85384; 85610; 85730; 86140; 86403; 87040; 87086; 87635; 87641; 87804; 93005; 93306; 93970; 94640; 96372; 96375; 97116; 97162; 97165; 99283; J0456; J1100; J1644; J1815; J1940; J2543; J3370; J3490; J3535; J7030; J7050; J7512; Q9967